=== PATIENT | female | born 1955 | race Caucasian/White ===

== ENCOUNTER → 2016-12-29 | Outpatient (CLI) | payer MEDICARE, MEDICAID ==
[~2016-12-29] MED LIST: NAPR250T34
--- NOTE | 2016-12-29 17:46 | Diagnostic Imaging Report ---
EXAMINATION: Bilateral digital screening mammogram with CAD. The current study was also evaluated with a Computer Aided Detection (CAD) system. INDICATION: Screening. No current complaints stated on the questionnaire. COMPARISON: 12/29/16. FINDINGS: The breasts are composed of heterogeneously dense parenchyma which may decrease mammographic sensitivity. No mass, architectural distortion or suspicious calcification. Allowing for technique and positional differences, no suspicious change is seen. IMPRESSION: Dense breasts with no definite change. ACR BI-RADS Category 2: Benign findings. Result letter will be mailed to the patient. Note: At least 10% of breast cancer is not imaged by mammography. Dictated by: Dictated on workstation # [id number]
== END ==
LOC: RAD 11:03
PROVIDERS: ATTEND Internal Medicine
DX: Z12.31 Encounter for screening mammogram for malignant neoplasm of breast (principal)
CPT/HCPCS: 77067

== ENCOUNTER → 2017-08-24 | Outpatient (CLI) | payer MEDICARE, MEDICAID ==
--- NOTE | 2017-08-24 11:55 | Diagnostic Imaging Report ---
PROCEDURE: CT lumbar spine without contrast. TECHNIQUE: Multiple contiguous axial images were obtained through the lumbar spine without the use of intravenous contrast. Sagittal and coronal reformations were then performed. INDICATION: Low back pain radiating into left knee. Left hip replacement. COMPARISON: None. FINDINGS: Advanced scoliotic curvature of the lower thoracic and lumbar spine, apex right centered at L1-L2, apex left centered at L4-L5. There is moderate rightward listhesis of L3 on L4. No substantial anterior or retrolisthesis. Advanced degenerative endplate changes throughout the lumbar spine. Advanced diffuse facet arthropathy. Vertebral body heights preserved. No acute fractures. Soft tissue windows demonstrate no high-grade spinal canal narrowing on this noncontrast exam. Degenerative endplate changes combined with facet arthropathy and scoliosis do result in moderate to advanced neural foraminal narrowing on the left at L1-L2 and on the right at L4-L5 and L5-S1. Medullary nephrocalcinosis of the left kidney. Mild scattered atherosclerotic calcifications. IMPRESSION: 1. No acute CT findings in the lumbar spine. 2. Advanced spondylotic and scoliotic changes in the lumbar spine. Soft tissue windows demonstrate no findings suspicious for high-grade spinal canal narrowing. This could be better evaluated with CT myelogram or MRI. 3. Scattered moderate to advanced neural foraminal narrowing described above. Dictated by: Dictated on workstation # [id number]
== END ==
LOC: RAD 11:18
PROVIDERS: ATTEND Internal Medicine Cardiovascular Disease
DX: M47.816 Spondylosis without myelopathy or radiculopathy, lumbar region (principal); M41.86 Other forms of scoliosis, lumbar region; M43.16 Spondylolisthesis, lumbar region; M46.86 Other specified inflammatory spondylopathies, lumbar region; M99.73 Connective tissue and disc stenosis of intervertebral foramina of lumbar region; E83.59 Other disorders of calcium metabolism; N29 Other disorders of kidney and ureter in diseases classified elsewhere; I70.90 Unspecified atherosclerosis; M19.90 Unspecified osteoarthritis, unspecified site; I10 Essential (primary) hypertension; Z83.3 Family history of diabetes mellitus; Z87.891 Personal history of nicotine dependence; Z96.642 Presence of left artificial hip joint
CPT/HCPCS: 72131

== ENCOUNTER → 2017-09-15 | Outpatient (CLI) | payer MEDICARE, MEDICAID ==
[~2017-09-15] MED LIST changes: +IOHEXOL 350 MG/ML 100 ML (OMNIPAQUE 350) VIAL IV ONE; +NS 250 ML (IVPB) BAG IV ONE
--- NOTE | 2017-09-15 13:38 | Diagnostic Imaging Report ---
PROCEDURE: CT chest, abdomen, and pelvis with contrast. TECHNIQUE: Multiple contiguous axial images were obtained through the chest, abdomen, and pelvis after the administration of intravenous contrast. INDICATION: Left lower quadrant pain as well as weight loss and hypercalcemia. COMPARISON: No prior studies are available for comparison. CT CHEST: No axillary lymphadenopathy is detected. No hilar or mediastinal lymphadenopathy is detected. There is no pericardial or pleural fluid identified. No pulmonary infiltrates, nodules, or masses are seen. Scoliotic curvature of the thoracic spine is seen. IMPRESSION: Essentially unremarkable CT of the chest. No pulmonary parenchymal mass or thoracic lymphadenopathy is detected. CT ABDOMEN AND PELVIS: No discrete liver mass is identified. The gallbladder is unremarkable. The pancreas and spleen are unremarkable. No adrenal mass is detected. Bilateral renal calculi are identified. The greatest stone burden is on the left where there are numerous large calculi. The largest is approximately 14 mm in size. No definite hydronephrosis is seen. There are low-density lesions within both kidneys suggestive of cysts. The largest is on the left in the upper pole measuring 3.8 cm. No definite ureteral calculi are seen. The aorta is nonaneurysmal. No central retroperitoneal or mesenteric lymphadenopathy is seen. The visualized small and large bowel loops are normal in caliber. There is moderate stool in the right colon. There is no ascites. There is a large amount of artifact in the pelvis from the patient's left hip prosthesis. Lumbar scoliosis and spondylosis is noted. IMPRESSION: 1. Bilateral nonobstructing left nephrolithiasis. There is significant stone burden involving the left kidney. No definite urinary tract obstruction is seen. 2. Bilateral renal cysts. 3. No other significant abnormality is identified. Dictated by: Dictated on workstation # [id number]
== END ==
LOC: RAD 12:10
PROVIDERS: ATTEND Internal Medicine
DX: N20.0 Calculus of kidney (principal); N28.1 Cyst of kidney, acquired; E83.52 Hypercalcemia
CPT/HCPCS: 71260; 74177

== ENCOUNTER → 2017-10-12 | Outpatient (CLI) | payer MEDICARE, MEDICAID ==
[~2017-10-12] MED LIST changes: -IOHEXOL 350 MG/ML 100 ML (OMNIPAQUE 350) VIAL IV ONE; -NS 250 ML (IVPB) BAG IV ONE
--- NOTE | 2017-10-12 14:17 | Diagnostic Imaging Report ---
PROCEDURE: MRI lumbar spine. INDICATION: Low back pain with left leg pain and weakness x12 weeks. No known injury. TECHNIQUE: Multiplanar and multisequence noncontrast magnetic resonance imaging was performed of the lumbar spine. CORRELATION STUDY: CT lumbar spine 08/24/2017. FINDINGS: Rather pronounced thoracolumbar scoliotic curvature present, apex to the right at L2 into the left at L4-L5. There is moderate rightward listhesis of L3 on L4. Lumbar vertebral body heights demonstrate slight asymmetric areas of loss of height, particularly along the left aspect of L1. No acute-appearing compression deformity. No significant geographic lesion. The conus appears unremarkable. L5-S1: Mild loss of disc space height. Asymmetric disc and osteophyte formation along with asymmetric hypertrophic facet arthropathy result in prominent left foraminal narrowing. Ligamentum hypertrophy results in spinal canal narrowing to approximately 8 mm. L4-L5: Mild loss of height. Ligamentum and facet hypertrophy is present with slight trefoil-type spinal canal configuration. Asymmetric mild right foraminal narrowing. Left foramina fairly well maintained. L3-L4: Moderate loss of disc space height. Ligamentum and facet hypertrophy disproportionate, greater on the left. Disc and osteophyte formation results in bilateral foraminal narrowing, perhaps slightly greater on the right. L2-L3: Moderate loss of disc space height. Ligamentum and facet hypertrophy. Moderate bilateral foraminal narrowing owing to disc and osteophyte formation. L1-L2: Moderate to marked loss of disc space height. Mild ligamentum and facet hypertrophy without significant spinal canal narrowing. Moderate bilateral foraminal narrowing owing to disc and osteophyte formation. T2 hyperintense renal lesions suggestive of renal cyst. Abdominal aorta appearing normal in contour. IMPRESSION: 1. Rather pronounced multilevel areas of foraminal narrowing. This is largely attributed to degenerative disc and osteophyte formation along with asymmetric hypertrophic facet arthropathy. Findings are accentuated by a moderate severity scoliotic curvature of the thoracolumbar spine. Dictated by: Dictated on workstation # [id number]
== END ==
LOC: RAD 08:27
PROVIDERS: ATTEND Internal Medicine
DX: M99.73 Connective tissue and disc stenosis of intervertebral foramina of lumbar region (principal); M51.16 Intervertebral disc disorders with radiculopathy, lumbar region; M46.86 Other specified inflammatory spondylopathies, lumbar region; M41.85 Other forms of scoliosis, thoracolumbar region
CPT/HCPCS: 72148

== ENCOUNTER → 2018-04-17 | Outpatient (CLI) | payer MEDICARE, MEDICAID ==
[2018-04-17 10:59] LABS: BILIRUBIN,URINE NEGATIVE (NEGATIVE); CLARITY,URINE SLIGHTLY CLOUDY; COLOR,URINE YELLOW; GLUCOSE, URINE (UA) NEGATIVE (NEGATIVE); KETONES,URINE NEGATIVE (NEGATIVE); LEUKOCYTE ESTERASE ,URINE 3+ (NEGATIVE); NITRITE,URINE POSITIVE (NEGATIVE); PH,URINE 6.5 (5-9); PROTEIN,URINE 1+ (NEGATIVE); UROBILINOGEN,URINE NORMAL (NORMAL)
[2018-04-17 11:18] LABS: BACTERIA,URINE MODERATE /HPF; WBC,URINE >100 /HPF
== END ==
LOC: LAB 10:42
PROVIDERS: ATTEND Internal Medicine
DX: N39.0 Urinary tract infection, site not specified (principal); R31.9 Hematuria, unspecified
CPT/HCPCS: 81000; 87077; 87088

== ENCOUNTER → 2018-05-31 | Outpatient (CLI) | payer MEDICARE, MEDICAID ==
[~2018-05-31] MED LIST changes: +IOHEXOL 350 MG/ML 100 ML (OMNIPAQUE 350) VIAL IV ONE; +NS 100 ML (IVPB) BAG IV ONE; +RECEIVED CONTRAST (Hold Metformin) IV SCH
[2018-05-31 08:40] LABS: CREATININE SERUM 1.14 MG/DL (0.60-1.30)
--- NOTE | 2018-05-31 10:01 | Diagnostic Imaging Report ---
PROCEDURE: CT abdomen and pelvis with contrast. TECHNIQUE: Multiple contiguous axial images were obtained through the abdomen and pelvis after administration of intravenous contrast. INDICATION: Hernia on left side. FINDINGS: The previous CT of the chest, abdomen and pelvis exam of 09/15/2017 noted multiple nonobstructive calculi involving both kidneys, particularly the left kidney. There are also several cysts associated with the left kidney including a 3.8 cm cyst in the superior pole. Those findings are again evident on this study. There is still no evidence for obstruction of either collecting system by a calculus. However one of the cysts within the left kidney has increased in size since the prior study. On the prior exam the cyst measured approximately 2.7 cm in maximum dimension. On this exam the cyst is now estimated to be 4.3 cm. The cyst in the superior pole of the left kidney seen previously is also increased in size and now measures 4.2 cm. The images through the pelvis fail to show any sign of a discrete solid or cystic mass. The pelvic contents however are partially obscured by streak artifact related to the total hip prosthesis on the left and the orthopedic hardware overlying the left ilium. There does appear to be a fair amount of fecal material within the rectosigmoid portion of the colon. The uterus and urinary bladder are grossly unremarkable. The appendix was not well-visualized but there are no indirect signs of acute appendicitis. The liver, spleen, pancreas, adrenals, aorta and inferior vena cava are unremarkable for an acute abnormality. The gallbladder is not well-distended and consequently difficult to assess. The stomach is partially filled with fluid and also difficult to assess. Lung bases are clear. The bone windows fail to show any sign of a fracture or of a destructive lesion. There is dextroscoliosis of the thoracolumbar junction with fairly severe degenerative disc and bone disease on the left at L1-2. IMPRESSION: 1. There is no acute abnormality of the abdomen or pelvis. 2. There is a considerable amount of fecal material within the rectosigmoid portion of the colon but there is no pelvic mass or free fluid collection identified. The pelvic contents however are difficult to visualize due to streak artifact related to the total hip prosthesis on the left. 3. The nonobstructive calculi involving both kidneys seen previously are again evident and do not appear to have changed significantly. There is no sign of obstruction of either collecting system. However there has been a definite increase in the size of two of the cysts associate with the left kidney. Dictated by: Dictated on workstation # [id number]
== END ==
LOC: RAD 08:04
PROVIDERS: ATTEND Surgery
DX: N20.0 Calculus of kidney (principal); N28.1 Cyst of kidney, acquired; Z96.642 Presence of left artificial hip joint
CPT/HCPCS: 36415; 74177; 82565; 84520

== ENCOUNTER → 2018-09-19 | Outpatient (CLI) | payer MEDICARE, MEDICAID ==
[~2018-09-19] MED LIST changes: -IOHEXOL 350 MG/ML 100 ML (OMNIPAQUE 350) VIAL IV ONE; -NS 100 ML (IVPB) BAG IV ONE; -RECEIVED CONTRAST (Hold Metformin) IV SCH
--- NOTE | 2018-09-19 15:14 | Diagnostic Imaging Report ---
INDICATION: Left renal and right ureteral calculi. Right lower quadrant abdominal pain. COMPARISON: 05/31/2018 FINDINGS: Single supine radiographic view of the abdomen was obtained and demonstrates interval migration of 6 mm calculus into the mid right ureter. Multiple left renal calculi are again identified. Small bowel loops are nondistended. There is no large collection of free intraperitoneal air. Postsurgical changes to the left hip are noted. Bony structures show dextroscoliotic deformity with multilevel degenerative changes of the lumbar spine. IMPRESSION: 1. Interval migration of 6 mm calculus to the right mid ureter. 2. Multiple right-sided renal calculi. Dictated by: Dictated on workstation # [id number]
== END ==
LOC: RAD 13:50
PROVIDERS: ATTEND Urology
DX: N20.2 Calculus of kidney with calculus of ureter (principal)
CPT/HCPCS: 74018

== ENCOUNTER 2018-09-25 05:59 | Day surgery (SDC) | payer MEDICARE, MEDICAID ==
[2018-09-25] VITALS (7 sets, daily range): BP systolic 162–190; BP diastolic 88–105
[~2018-09-25] VITALS: Ht 162.6 cm; Wt 48.5 kg
[2018-09-25] MEDS ORDERED: LACTATED RINGERS 1,000 ML IV PRN (06:40)
[2018-09-25] MEDS ORDERED: cefTRIAXone FOR IV USE 1,000 MG in WATER (STERILE) FOR INJECTION 10 ML IV ONE (06:45)
[2018-09-25] MEDS ORDERED: cefTRIAXone 1,000 MG IV (ROCEPHIN) VIAL ONE (06:52)
[2018-09-25] MEDS ORDERED: LIDOCAINE PF 2% 5 ML (XYLOCAINE) VIAL ONE (06:55)
[2018-09-25] MEDS ORDERED: ONDANSETRON 4 MG/2 ML (SDV) Z0FRAN ONE (06:55)
[2018-09-25] MEDS ORDERED: DEXAMETHASONE 10 MG/ML (DECADRON) 1 ML VIAL ONE ×2 (06:55→08:08)
[2018-09-25] MEDS ORDERED: proPOfol 200 MG/20 ML (DIPRIVAN) VIAL IV ONE (06:55)
[2018-09-25] MEDS ORDERED: MIDAZOLAM 2 MG/2 ML (VERSED) VIAL ONE (06:58)
[2018-09-25] MEDS ORDERED: SEVOFLURANE (ULTANE) 15 ML INHAL SOLN ONE ×2 (06:58→08:15)
[2018-09-25] MEDS ORDERED: fentaNYL INJECTION 100 MCG/2 ML AMP ONE (06:58)
--- NOTE | 2018-09-25 07:01 | Progress Note-Pre Operative ---
Pre-Operative Progress Note H&P Reviewed The H&P was reviewed, patient examined and no changes noted. Date Seen by Provider: Sep 25, 2018 Time Seen by Provider: 07:01 Date H&P Reviewed: Sep 25, 2018 Time H&P Reviewed: 07:01 Pre-Operative Diagnosis: RT PROXIMAL URETERAL STONE ASHLEY POLO MD Sep 25, 2018 07:01
--- NOTE | 2018-09-25 07:08 | Progress Note-Post Operative ---
Post-Operative Progess Note Surgeon (s)/Calibration Technician (s) Surgeon ASHLEY POLO MD Calibration Technician: NONE Pre-Operative Diagnosis RT PROXIMAL URETERAL STONE Post-Operative Diagnosis SAME Procedure & Operative Findings Date of Procedure 09/25/18 Procedure Performed/Findings CYSTOSCOPY, ATTEMPTED RT URETERAL STONE MANIPULATION, RT URETEROSCOPY, ATTEMPTED INSERTION OF STENT Anesthesia Type GENERAL Estimated Blood Loss Estimated blood loss (mL): NONE Specimens/Packing Specimens Removed NONE Packing: NONE ASHLEY POLO MD Sep 25, 2018 07:08
--- NOTE | 2018-09-25 08:01 | Diagnostic Imaging Report ---
INDICATION: Right ureteral calculus. Calculus on the right measuring 8.9 mm projects over the upper right sacral ala not substantially changed from prior. Mid ureteral stone suspected. Innumerable calcifications project along the left flank. Pelvic phleboliths showed no change. IMPRESSION: Large irregular calcification at the level of the top of the right sacral ala unchanged. Innumerable left-sided stones unchanged. Pelvic calcifications believed phleboliths. Dictated by: Dictated on workstation # [id number]
--- NOTE | 2018-09-25 08:06 | Discharge Inst-Urology ---
Discharge Inst-Urology Discharge Medications New, Converted, or Re-newed RX: RX on Chart Patient Instructions/Follow Up Plan Please make appointment to been seen in office tomorrow afternoon. Increase oral fluids for 48 hours and then as needed. Diet and Activity as tolerated. If questions or concerns contact your physician Or seek help at emergency department. ASHLEY POLO MD Sep 25, 2018 08:06
[2018-09-25] MEDS ORDERED: PHEN-640 PO ×2 (08:27)
[2018-09-25] MEDS ORDERED: HYDR-3870 PO ×2 (08:27)
[2018-09-25] MEDS ORDERED: NITR-65 PO ×2 (08:27)
--- NOTE | 2018-09-25 08:39 | Anesthesia-General Post-Op ---
General Patient Condition Mental Status/LOC: Same as Preop Cardiovascular: Satisfactory Nausea/Vomiting: Absent Respiratory: Satisfactory Pain: Controlled Complications: Absent Post Op Complications Complications None Follow Up Care/Instructions Patient Instructions None needed. Anesthesia/Patient Condition Patient Condition Patient is doing well, no complaints, stable vital signs, no apparent adverse anesthesia problems. No complications reported per nursing. JU WOOTEN CRNA Sep 25, 2018 08:39
[2018-09-25] MEDS ORDERED: HYDROcodone/APAP 5 MG/325 MG (LORTAB) TAB ONE (08:58)
[2018-09-25] MEDS ORDERED: PHENAZOPYRIDINE 100 MG (PYRIDIUM) TABLET ONE (08:58)
[2018-09-25] MEDS ORDERED: PHENAZOPYRIDINE 100 MG (PYRIDIUM) TABLET PO ONE (09:15)
[2018-09-25] MEDS ORDERED: HYDROcodone/APAP 5 MG/325 MG (LORTAB) TAB PO ONE (09:15)
--- NOTE | 2018-09-25 12:47 | OPERATIVE REPORT ---
DATE OF SERVICE: 09/25/2018 PREOPERATIVE DIAGNOSIS: Right proximal ureteral stone. POSTOPERATIVE DIAGNOSIS: Right proximal ureteral stone. OPERATION PERFORMED: Cystoscopy, right ureteroscopy, attempted right ureteral stone manipulation, attempted insertion of stent. SURGEON: Christofer Polo MD ANESTHESIA: General. COMPLICATIONS: None. PROCEDURE IN DETAIL: Under satisfactory general anesthesia, the patient in lithotomy position, genitalia were prepped and draped in the usual sterile fashion. Cystoscope was introduced in the bladder. It was normal except for a very sluggish efflux on the right side. Using a foroblique lens, I dilated the right ureteral orifice intramural portion to accommodate a 6.9 Hungarian semirigid ureteroscope; however, I could not get all the way up to the stone that was at the level of L5 because of tightness of the ureter and some spasm despite injecting water to dilate it, I was not able to do that, so I removed the ureteroscope, reinserted the cystoscope and passed the catheter all the way to the stone. Tried to manipulate it, push it back into the kidney, flush it back into the kidney. Nothing worked, so I removed the catheter and attempted to pass a 6-Hungarian 26 cm double-J stent again unable to bypass the stone. I tried to pass a gliding wire, again the gliding wire could not bypass the stone. It was apparently filling the whole ureter. I discontinued further attempt and removed the cystoscope after emptying the bladder. The patient tolerated the procedure well and was sent to recovery room in stable condition. PLAN: I discussed with her brother and then later on with her and tomorrow afternoon when she has become more off anesthesia and lucid. Her option would be to either await the ESWL machine next week here when it comes or refer her to a place like or [facility], where they can do flexible ureteroscopy and lithotripsy. I explained the pros and cons and expectation risks and complication to them. Job ID: [id number] DocumentID: [id number] Dictated Date: 09/25/2018 08:11:29 Calculator Operator Date: 09/25/2018 12:46:52 Dictated By: CHRISTOFER POLO MD
== END 2018-09-25 09:45 | disposition home or self-care (01) ==
LOC: SDC 05:59
PROVIDERS: ATTEND Urology
DX: N20.1 Calculus of ureter (principal)
CPT/HCPCS: 74018; 87081

== ENCOUNTER 2018-09-27 05:36 | Outpatient (CLI) | payer MEDICARE, MEDICAID ==
[~2018-09-27] VITALS: Ht 162.6 cm; Wt 48.5 kg
[~2018-09-27 05:36] MED LIST changes: +HYDR-3870 PO; +NITR-65 PO; +PHEN-640 PO
== END 2018-09-27 13:11 | disposition home or self-care (01) ==
LOC: PREOP 05:36
PROVIDERS: ATTEND Urology
DX: Z01.818 Encounter for other preprocedural examination (principal)

== ENCOUNTER 2018-10-02 06:58 | Day surgery (SDC) | payer MEDICARE, MEDICAID ==
[~2018-10-02] VITALS: Ht 162.6 cm; Wt 49.4 kg
[2018-10-02] VITALS (9 sets, daily range): BP systolic 156–183; BP diastolic 89–97
[2018-10-02] MEDS ORDERED: cefTRIAXone 1,000 MG/SWFI 10 ML IV PUSH IV ONE ×2 (07:15)
[2018-10-02] MEDS ORDERED: LACTATED RINGERS 1,000 ML IV PRN (07:20)
[2018-10-02] MEDS ORDERED: ONDANSETRON 4 MG/2 ML (SDV) Z0FRAN ONE (07:24)
[2018-10-02] MEDS ORDERED: SEVOFLURANE (ULTANE) 15 ML INHAL SOLN ONE ×6 (07:24→09:13)
[2018-10-02] MEDS ORDERED: proPOfol 200 MG/20 ML (DIPRIVAN) VIAL IV ONE (07:24)
[2018-10-02] MEDS ORDERED: MIDAZOLAM 2 MG/2 ML (VERSED) VIAL ONE (07:24)
[2018-10-02] MEDS ORDERED: fentaNYL INJECTION 100 MCG/2 ML AMP ONE (07:24)
[2018-10-02] MEDS ORDERED: DEXAMETHASONE 10 MG/ML (DECADRON) 1 ML VIAL ONE (07:24)
[2018-10-02] MEDS ORDERED: LIDOCAINE PF 2% 5 ML (XYLOCAINE) VIAL ONE (07:24)
[2018-10-02] MEDS ORDERED: cefTRIAXone FOR IV USE 1,000 MG in WATER (STERILE) FOR INJECTION 10 ML IV ONE (07:30)
--- NOTE | 2018-10-02 08:04 | Diagnostic Imaging Report ---
PATIENT HISTORY: ESWL. TECHNIQUE: Single frontal view of the abdomen COMPARISON: 09/25/2018 FINDINGS: The previously seen right ureteral calculus appears unchanged at the superior aspect of the right sacrum. There are innumerable calculi in the left kidney which appear unchanged. Phleboliths are seen in the pelvis. There is internal fixation of the left pelvis with total left hip arthroplasty. Advanced degenerative changes are again seen in the lumbar spine. IMPRESSION: 1. Unchanged right ureteral calculus. Unchanged innumerable left renal calculi. Dictated by: Dictated on workstation # [id number]
--- NOTE | 2018-10-02 08:04 | Progress Note-Pre Operative ---
Pre-Operative Progress Note H&P Reviewed The H&P was reviewed, patient examined and no changes noted. Date Seen by Provider: Oct 02, 2018 Time Seen by Provider: 08:03 Date H&P Reviewed: Oct 02, 2018 Time H&P Reviewed: 08:03 Pre-Operative Diagnosis: RT PROXIMAL URETERAL STONE ASHLEY POLO MD Oct 02, 2018 08:04
[2018-10-02] MEDS ORDERED: FUROSEMIDE 40 MG/4 ML INJ (LASIX) ONE (08:28)
--- NOTE | 2018-10-02 08:54 | Discharge Inst-Urology ---
Discharge Inst-Urology Discharge Medications New, Converted, or Re-newed RX: RX on Chart Patient Instructions/Follow Up Plan Please make appointment to been seen in office Sunday 10/15, JORGE prior to it. Post ESWL instructions KUB on way home Increase oral fluids for 48 hours and then as needed. Diet and Activity as tolerated. If questions or concerns contact your physician Or seek help at emergency department. ASHLEY POLO MD Oct 02, 2018 08:54
--- NOTE | 2018-10-02 08:55 | Progress Note-Post Operative ---
Post-Operative Progess Note Surgeon (s)/Cleaning Porter (s) Surgeon ASHLEY POLO MD Cleaning Porter: NONE Pre-Operative Diagnosis RT PROXIMAL URETERAL STONE Post-Operative Diagnosis SAME Procedure & Operative Findings Date of Procedure 10/02/18 Procedure Performed/Findings RT ESWL Anesthesia Type GENERAL Estimated Blood Loss Estimated blood loss (mL): NONE Specimens/Packing Specimens Removed NONE Packing: NONE ASHLEY POLO MD Oct 02, 2018 08:55
[2018-10-02] MEDS ORDERED: MEPERIDINE (DEMEROL) INJ 50 MG/ML IVP ONE (09:30)
[2018-10-02] MEDS ORDERED: morphine INJ 10 MG/ML 1ML (SYR OR VIAL) IVP ONE (09:30)
[2018-10-02] MEDS ORDERED: ONDANSETRON 4 MG/2 ML (SDV) Z0FRAN IVP PRN (09:30)
[2018-10-02] MEDS ORDERED: NITR-65 PO (10:04)
[2018-10-02] MEDS ORDERED: TAMS0.4C98 PO (10:04)
[2018-10-02] MEDS ORDERED: HYDR-3870 PO (10:04)
--- OUTSIDE RECORDS SUMMARY | 2018-10-02 10:12 | XMS REPORT | Continuity of Care Document ---
Author Organization Unknown Address Unknown Allergies Active Description Code Type Severity Reaction Onset Reported/Identified Relationship to Patient Clinical Status Yes ASPIRIN MODERATE MODERATE Yes ASPIRIN MODERATE OTHER Yes LEVAQUIN MODERATE MODERATE Yes LEVAQUIN MODERATE OTHER Yes aspirin [id number] Drug Allergy Mild N/A 09/28/2011 Yes levofloxacin [id number] Drug Allergy Mild N/A 09/28/2011 Yes aspirin [id number] Drug Allergy Mild "MADE EARDRUMS 09/24/2018 Yes levofloxacin [id number] Drug Allergy Mild "MADE HER FEEL 09/24/2018 Medications Medication Packaging Start Date Stop Date Route Dosage Sig SMZ/TMP DS TAB (SEPTRA DS) (Bactrim DS) TAB 03/28/2018 03/28/2018 ONCE&1815 NORMAL SALINE 1000CC IV BAG INJ 0.9 % (NS 1000CC IV BAG) ml 09/17/2018 09/17/2018 ONCE&0410 KETOROLAC VIAL INJ 15 MG/CC (TORADOL VIAL) MG 09/17/2018 09/17/2018 ONCE&0553 FENTANYL INJ 100 MCG/2CC VIAL MCG 09/17/2018 09/17/2018 ONCE&0626 FENTANYL INJ 100 MCG/2CC VIAL MCG 09/17/2018 09/17/2018 ONCE&0651 HYDROCODONE/APAP 7.5/325 TAB (DOROTHY-TAB 7.5/325) TAB 09/17/2018 09/17/2018 PRN ONCE Problems Date Dx Coded Attending Type Code Diagnosis Diagnosed By 02/18/2010 Ot 592.0 05/12/2014 Ot V76.12 05/12/2014 Ot 378.54 05/12/2014 Ot V76.12 05/12/2014 Ot 733.00 05/12/2014 Ot V58.69 05/12/2014 PRABHU CHACON MD Ot V76.12 06/30/2014 PRABHU CHACON MD Ot 788.1 08/10/2014 PRABHU CHACON MD Ot 788.1 DYSURIA 12/10/2014 PRABHU CHACON MD Ot V76.12 12/02/2015 PRABHU CHACON MD Ot Z12.31 ENCNTR SCREEN MAMMOGRAM FOR MALIGNANT NE 12/24/2015 PRABHU CHACON MD Ot Z12.31 ENCNTR SCREEN MAMMOGRAM FOR MALIGNANT NE 08/01/2016 Ot 592.0 11/01/2016 Ot 592.0 12/26/2016 PRABHU CHACON MD Ot Z12.31 ENCNTR SCREEN MAMMOGRAM FOR MALIGNANT NE 12/26/2016 Ot 733.00 OSTEOPOROSIS NOS 12/26/2016 Ot V58.69 OTH MED,LT,CURRENT USE 12/26/2016 PRABHU CHACON MD Ot V76.12 OTH SCREEN MAMMO-MALIGN NEOPLASM OF JAMI 12/26/2016 PRABHU CHACON MD Ot 788.1 DYSURIA 12/26/2016 PRABHU CHACON MD Ot V76.12 OTH SCREEN MAMMO-MALIGN NEOPLASM OF JAMI 12/26/2016 PRABHU CHACON MD Ot Z12.31 ENCNTR SCREEN MAMMOGRAM FOR MALIGNANT NE 12/26/2016 PRABHU CHACON MD Ot Z12.31 ENCNTR SCREEN MAMMOGRAM FOR MALIGNANT NE 12/29/2016 Ot 733.00 OSTEOPOROSIS NOS 12/29/2016 Ot V58.69 OTH MED,LT,CURRENT USE 12/29/2016 PRABHU CHACON MD Ot V76.12 OTH SCREEN MAMMO-MALIGN NEOPLASM OF JAMI 12/29/2016 PRABHU CHACON MD Ot 788.1 DYSURIA 12/29/2016 PRABHU CHACON MD Ot V76.12 OTH SCREEN MAMMO-MALIGN NEOPLASM OF JAMI 12/29/2016 PRABHU CHACON MD Ot Z12.31 ENCNTR SCREEN MAMMOGRAM FOR MALIGNANT NE 12/29/2016 PRABHU CHACON MD Ot Z12.31 ENCNTR SCREEN MAMMOGRAM FOR MALIGNANT NE 12/30/2016 PRABHU CHACON MD Ot Z12.31 ENCNTR SCREEN MAMMOGRAM FOR MALIGNANT NE 01/01/2017 Ot 592.0 01/18/2017 PRABHU CHACON MD Ot Z12.31 ENCNTR SCREEN MAMMOGRAM FOR MALIGNANT NE 01/27/2017 PRABHU CHACON MD Ot Z12.31 ENCNTR SCREEN MAMMOGRAM FOR MALIGNANT NE 09/06/2017 DAMARIS TSAI MD Ot E83.59 OTHER DISORDERS OF CALCIUM METABOLISM 09/06/2017 DAMARIS TSAI MD Ot I10 ESSENTIAL (PRIMARY) HYPERTENSION 09/06/2017 DAMARIS TSAI MD Ot I70.90 UNSPECIFIED ATHEROSCLEROSIS 09/06/2017 DAMARIS TSAI MD Ot M19.90 UNSPECIFIED OSTEOARTHRITIS, UNSPECIFIED 09/06/2017 DAMARIS TSAI MD Ot M41.86 OTHER FORMS OF SCOLIOSIS, LUMBAR REGION 09/06/2017 DAMARIS TSAI MD Ot M43.16 SPONDYLOLISTHESIS, LUMBAR REGION 09/06/2017 DAMARIS TSAI MD Ot M46.86 OTHER SPECIFIED INFLAMMATORY SPONDYLOPAT 09/06/2017 DAMARIS TSAI MD Ot M47.816 SPONDYLOSIS W/O MYELOPATHY OR RADICULOPA 09/06/2017 DAMARIS TSAI MD Ot M99.73 CONN TISS AND DISC STENOS OF INTVRT FORA 09/06/2017 DAMARIS TSAI MD Ot N29 OTH DISORDERS OF KIDNEY AND URETER IN DI 09/06/2017 DAMARIS TSAI MD Ot Z83.3 FAMILY HISTORY OF DIABETES MELLITUS 09/06/2017 DAMARIS TSAI MD Ot Z87.891 PERSONAL HISTORY OF NICOTINE DEPENDENCE 09/06/2017 DAMARIS TSAI MD Ot Z96.642 PRESENCE OF LEFT ARTIFICIAL HIP JOINT 09/08/2017 DAMARIS TSAI MD Ot E83.59 OTHER DISORDERS OF CALCIUM METABOLISM 09/08/2017 DAMARIS TSAI MD Ot I10 ESSENTIAL (PRIMARY) HYPERTENSION 09/08/2017 DAMARIS TSAI MD Ot I70.90 UNSPECIFIED ATHEROSCLEROSIS 09/08/2017 DAMARIS TSAI MD Ot M19.90 UNSPECIFIED OSTEOARTHRITIS, UNSPECIFIED 09/08/2017 DAMARIS TSAI MD Ot M41.86 OTHER FORMS OF SCOLIOSIS, LUMBAR REGION 09/08/2017 DAMARIS TSAI MD Ot M43.16 SPONDYLOLISTHESIS, LUMBAR REGION 09/08/2017 DAMARIS TSAI MD Ot M46.86 OTHER SPECIFIED INFLAMMATORY SPONDYLOPAT 09/08/2017 DAMARIS TSAI MD Ot M47.816 SPONDYLOSIS W/O MYELOPATHY OR RADICULOPA 09/08/2017 DAMARIS TSAI MD Ot M99.73 CONN TISS AND DISC STENOS OF INTVRT FORA 09/08/2017 DAMARIS TSAI MD Ot N29 OTH DISORDERS OF KIDNEY AND URETER IN DI 09/08/2017 DAMARIS TSAI MD Ot Z83.3 FAMILY HISTORY OF DIABETES MELLITUS 09/08/2017 DAMARIS TSAI MD Ot Z87.891 PERSONAL HISTORY OF NICOTINE DEPENDENCE 09/08/2017 DAMARIS TSAI MD Ot Z96.642 PRESENCE OF LEFT ARTIFICIAL HIP JOINT 09/13/2017 DAMARIS TSAI MD Ot E83.59 OTHER DISORDERS OF CALCIUM METABOLISM 09/13/2017 DAMARIS TSAI MD Ot I10 ESSENTIAL (PRIMARY) HYPERTENSION 09/13/2017 DAMARIS TSAI MD Ot I70.90 UNSPECIFIED ATHEROSCLEROSIS 09/13/2017 DAMARIS TSAI MD Ot M19.90 UNSPECIFIED OSTEOARTHRITIS, UNSPECIFIED 09/13/2017 DAMARIS TSAI MD Ot M41.86 OTHER FORMS OF SCOLIOSIS, LUMBAR REGION 09/13/2017 DAMARIS TSAI MD Ot M43.16 SPONDYLOLISTHESIS, LUMBAR REGION 09/13/2017 DAMARIS TSAI MD Ot M46.86 OTHER SPECIFIED INFLAMMATORY SPONDYLOPAT 09/13/2017 DAMARIS TSAI MD Ot M47.816 SPONDYLOSIS W/O MYELOPATHY OR RADICULOPA 09/13/2017 DAMARIS TSAI MD Ot M99.73 CONN TISS AND DISC STENOS OF INTVRT FORA 09/13/2017 DAMARIS TSAI MD Ot N29 OTH DISORDERS OF KIDNEY AND URETER IN DI 09/13/2017 DAMARIS TSAI MD Ot Z83.3 FAMILY HISTORY OF DIABETES MELLITUS 09/13/2017 DAMARIS TSAI MD Ot Z87.891 PERSONAL HISTORY OF NICOTINE DEPENDENCE 09/13/2017 DAMARIS TSAI MD Ot Z96.642 PRESENCE OF LEFT ARTIFICIAL HIP JOINT 09/13/2017 DAMARIS TSAI MD Ot E83.59 OTHER DISORDERS OF CALCIUM METABOLISM 09/13/2017 DAMARIS TSAI MD Ot I10 ESSENTIAL (PRIMARY) HYPERTENSION 09/13/2017 DAMARIS TSAI MD Ot I70.90 UNSPECIFIED ATHEROSCLEROSIS 09/13/2017 DAMARIS TSAI MD Ot M19.90 UNSPECIFIED OSTEOARTHRITIS, UNSPECIFIED 09/13/2017 DAMARIS TSAI MD Ot M41.86 OTHER FORMS OF SCOLIOSIS, LUMBAR REGION 09/13/2017 DAMARIS TSAI MD Ot M43.16 SPONDYLOLISTHESIS, LUMBAR REGION 09/13/2017 DAMARIS TSAI MD Ot M46.86 OTHER SPECIFIED INFLAMMATORY SPONDYLOPAT 09/13/2017 DAMARIS TSAI MD Ot M47.816 SPONDYLOSIS W/O MYELOPATHY OR RADICULOPA 09/13/2017 DAMARIS TSAI MD Ot M99.73 CONN TISS AND DISC STENOS OF INTVRT FORA 09/13/2017 DAMARIS TSAI MD Ot N29 OTH DISORDERS OF KIDNEY AND URETER IN DI 09/13/2017 DAMARIS TSAI MD Ot Z83.3 FAMILY HISTORY OF DIABETES MELLITUS 09/13/2017 DAMARIS TSAI MD Ot Z87.891 PERSONAL HISTORY OF NICOTINE DEPENDENCE 09/13/2017 DAMARIS TSAI MD Ot Z96.642 PRESENCE OF LEFT ARTIFICIAL HIP JOINT 09/18/2017 PRABHU CHACON MD Ot E83.52 HYPERCALCEMIA 09/18/2017 PRABHU CHACON MD Ot N20.0 CALCULUS OF KIDNEY 09/18/2017 PRABHU CHACON MD Ot N28.1 CYST OF KIDNEY, ACQUIRED 09/26/2017 PRABHU CHACON MD Ot E83.52 HYPERCALCEMIA 09/26/2017 PRABHU CHACON MD Ot M25.862 OTHER SPECIFIED JOINT DISORDERS, LEFT KN 09/26/2017 PRABHU CHACON MD Ot Z96.642 PRESENCE OF LEFT ARTIFICIAL HIP JOINT 10/03/2017 DAMARIS TSAI MD Ot E83.59 OTHER DISORDERS OF CALCIUM METABOLISM 10/03/2017 DAMARIS TSAI MD Ot I10 ESSENTIAL (PRIMARY) HYPERTENSION 10/03/2017 DAMARIS TSAI MD Ot I70.90 UNSPECIFIED ATHEROSCLEROSIS 10/03/2017 DAMARIS TSAI MD Ot M19.90 UNSPECIFIED OSTEOARTHRITIS, UNSPECIFIED 10/03/2017 DAMARIS TSAI MD Ot M41.86 OTHER FORMS OF SCOLIOSIS, LUMBAR REGION 10/03/2017 DAMARIS TSAI MD Ot M43.16 SPONDYLOLISTHESIS, LUMBAR REGION 10/03/2017 DAMARIS TSAI MD Ot M46.86 OTHER SPECIFIED INFLAMMATORY SPONDYLOPAT 10/03/2017 DAMARIS TSAI MD Ot M47.816 SPONDYLOSIS W/O MYELOPATHY OR RADICULOPA 10/03/2017 DAMARIS TSAI MD Ot M99.73 CONN TISS AND DISC STENOS OF INTVRT FORA 10/03/2017 DAMARIS TSAI MD Ot N29 OTH DISORDERS OF KIDNEY AND URETER IN DI 10/03/2017 DAMARIS TSAI MD Ot Z83.3 FAMILY HISTORY OF DIABETES MELLITUS 10/03/2017 DAMARIS TSAI MD Ot Z87.891 PERSONAL HISTORY OF NICOTINE DEPENDENCE 10/03/2017 DAMARIS TSAI MD Ot Z96.642 PRESENCE OF LEFT ARTIFICIAL HIP JOINT 10/06/2017 DAMARIS TSAI MD Ot E83.59 OTHER DISORDERS OF CALCIUM METABOLISM 10/06/2017 DAMARIS TSAI MD Ot I10 ESSENTIAL (PRIMARY) HYPERTENSION 10/06/2017 DAMARIS TSAI MD Ot I70.90 UNSPECIFIED ATHEROSCLEROSIS 10/06/2017 DAMARIS TSAI MD Ot M19.90 UNSPECIFIED OSTEOARTHRITIS, UNSPECIFIED 10/06/2017 DAMARIS TSAI MD Ot M41.86 OTHER FORMS OF SCOLIOSIS, LUMBAR REGION 10/06/2017 DAMARIS TSAI MD Ot M43.16 SPONDYLOLISTHESIS, LUMBAR REGION 10/06/2017 DAMARIS TSAI MD Ot M46.86 OTHER SPECIFIED INFLAMMATORY SPONDYLOPAT 10/06/2017 DAMARIS TSAI MD Ot M47.816 SPONDYLOSIS W/O MYELOPATHY OR RADICULOPA 10/06/2017 DAMARIS TSAI MD Ot M99.73 CONN TISS AND DISC STENOS OF INTVRT FORA 10/06/2017 DAMARIS TSAI MD Ot N29 OTH DISORDERS OF KIDNEY AND URETER IN DI 10/06/2017 DAMARIS TSAI MD Ot Z83.3 FAMILY HISTORY OF DIABETES MELLITUS 10/06/2017 DAMARIS TSAI MD Ot Z87.891 PERSONAL HISTORY OF NICOTINE DEPENDENCE 10/06/2017 DAMARIS TSAI MD Ot Z96.642 PRESENCE OF LEFT ARTIFICIAL HIP JOINT 10/09/2017 OSWALDO BIGGS, PRABHU Briones Ot E83.52 HYPERCALCEMIA 10/09/2017 OSWALDO BIGGS, PRABHU Briones Ot N20.0 CALCULUS OF KIDNEY 10/09/2017 OSWALDO BIGGS, PRABHU Briones Ot N28.1 CYST OF KIDNEY, ACQUIRED 10/13/2017 OSWALDO BIGGS, PRABHU Briones Ot E83.52 HYPERCALCEMIA 10/13/2017 PRABHU CHACON MD Ot N20.0 CALCULUS OF KIDNEY 10/13/2017 PRABHU CHACON MD Ot N28.1 CYST OF KIDNEY, ACQUIRED 10/13/2017 OSWALDO BIGGS, PRABHU Briones Ot E83.52 HYPERCALCEMIA 10/13/2017 PRABHU CHACON MD Ot M25.862 OTHER SPECIFIED JOINT DISORDERS, LEFT KN 10/13/2017 PRABHU CHACON MD Ot Z96.642 PRESENCE OF LEFT ARTIFICIAL HIP JOINT 10/18/2017 PRABHU CHACON MD Ot M41.85 OTHER FORMS OF SCOLIOSIS, THORACOLUMBAR 10/18/2017 PRABHU CHACON MD Ot M46.86 OTHER SPECIFIED INFLAMMATORY SPONDYLOPAT 10/18/2017 OSWALDO BIGGS, PRABHU Briones Ot M51.16 INTERVERTEBRAL DISC DISORDERS W RADICULO 10/18/2017 PRABHU CHACON MD Ot M99.73 CONN TISS AND DISC STENOS OF INTVRT FORA 03/19/2018 W 724.4 THORACIC OR LUMBOSACRAL NEURITIS OR RADICULITIS, UNSPECIFIED 03/19/2018 W M54.16 RADICULOPATHY, LUMBAR REGION 03/19/2018 W 724.4 THORACIC OR LUMBOSACRAL NEURITIS OR RADICULITIS, UNSPECIFIED 03/19/2018 W 728.87 MUSCLE WEAKNESS (GENERALIZED) 03/19/2018 W M54.16 RADICULOPATHY, LUMBAR REGION 03/19/2018 W M62.81 MUSCLE WEAKNESS (GENERALIZED) 03/28/2018 Danielle Johnson W 041.3 KLEBSIELLA PNEUMONIAE INFECTION IN CONDITIONS CLASSIFIED ELSEWHERE AND OF UNSPECIFIED SITE 03/28/2018 Danielle Johnson W 599.0 URINARY TRACT INFECTION, SITE NOT SPECIFIED 03/28/2018 Danielle Johnson W B96.1 KLEBSIELLA PNEUMONIAE THE CAUSE OF DISEASES CLASSD ELSWHR 03/28/2018 Danielle Johnson W N39.0 URINARY TRACT INFECTION, SITE NOT SPECIFIED 03/30/2018 W 724.4 THORACIC OR LUMBOSACRAL NEURITIS OR RADICULITIS, UNSPECIFIED 03/30/2018 W 728.87 MUSCLE WEAKNESS (GENERALIZED) 03/30/2018 W M54.16 RADICULOPATHY, LUMBAR REGION 03/30/2018 W M62.81 MUSCLE WEAKNESS (GENERALIZED) 04/17/2018 PRABHU CHACON MD Ot V76.12 OTH SCREEN MAMMO-MALIGN NEOPLASM OF JAMI 04/17/2018 PRABHU CHACON MD Ot 788.1 DYSURIA 04/17/2018 PRABHU CHACON MD Ot V76.12 OTH SCREEN MAMMO-MALIGN NEOPLASM OF JAMI 04/17/2018 PRABHU CHACON MD Ot Z12.31 ENCNTR SCREEN MAMMOGRAM FOR MALIGNANT NE 04/17/2018 PRABHU CHACON MD, Ot Z12.31 ENCNTR SCREEN MAMMOGRAM FOR MALIGNANT NE 04/17/2018 DAMARIS TSAI MD Ot E83.59 OTHER DISORDERS OF CALCIUM METABOLISM 04/17/2018 DAMARIS TSAI MD Ot I10 ESSENTIAL (PRIMARY) HYPERTENSION 04/17/2018 DAMARIS TSAI MD Ot I70.90 UNSPECIFIED ATHEROSCLEROSIS 04/17/2018 DAMARIS TSAI MD Ot M19.90 UNSPECIFIED OSTEOARTHRITIS, UNSPECIFIED 04/17/2018 DAMARIS TSAI MD Ot M41.86 OTHER FORMS OF SCOLIOSIS, LUMBAR REGION 04/17/2018 DAMARIS TSAI MD Ot M43.16 SPONDYLOLISTHESIS, LUMBAR REGION 04/17/2018 DAMARIS TSAI MD Ot M46.86 OTHER SPECIFIED INFLAMMATORY SPONDYLOPAT 04/17/2018 DAMARIS TSAI MD Ot M47.816 SPONDYLOSIS W/O MYELOPATHY OR RADICULOPA 04/17/2018 DAMARIS TSAI MD Ot M99.73 CONN TISS AND DISC STENOS OF INTVRT FORA 04/17/2018 DAMARIS TSAI MD Ot N29 OTH DISORDERS OF KIDNEY AND URETER IN DI 04/17/2018 DAMARIS TSAI MD Ot Z83.3 FAMILY HISTORY OF DIABETES MELLITUS 04/17/2018 DAMARIS TSAI MD Ot Z87.891 PERSONAL HISTORY OF NICOTINE DEPENDENCE 04/17/2018 DAMARIS TSAI MD Ot Z96.642 PRESENCE OF LEFT ARTIFICIAL HIP JOINT 04/17/2018 PRABHU CHACON MD Ot E83.52 HYPERCALCEMIA 04/17/2018 PRABHU CHACON MD Ot N20.0 CALCULUS OF KIDNEY 04/17/2018 PRABHU CHACON MD Ot N28.1 CYST OF KIDNEY, ACQUIRED 04/17/2018 PRABHU CHACON MD Ot E83.52 HYPERCALCEMIA 04/17/2018 PRABHU CHACON MD Ot M25.862 OTHER SPECIFIED JOINT DISORDERS, LEFT KN 04/17/2018 PRABHU CHACON MD Ot Z96.642 PRESENCE OF LEFT ARTIFICIAL HIP JOINT 04/17/2018 PRABHU CHACON MD Ot M41.85 OTHER FORMS OF SCOLIOSIS, THORACOLUMBAR 04/17/2018 PRABHU CHACON MD Ot M46.86 OTHER SPECIFIED INFLAMMATORY SPONDYLOPAT 04/17/2018 PRABHU CHACON MD Ot M51.16 INTERVERTEBRAL DISC DISORDERS W RADICULO 04/17/2018 PRABHU CHACON MD Ot M99.73 CONN TISS AND DISC STENOS OF INTVRT FORA 05/08/2018 PRABHU CHACON MD Ot N39.0 URINARY TRACT INFECTION, SITE NOT SPECIF 05/08/2018 PRABHU CHACON MD Ot R31.9 HEMATURIA, UNSPECIFIED 05/18/2018 PRABHU CHACON MD Ot N39.0 URINARY TRACT INFECTION, SITE NOT SPECIF 05/18/2018 PRABHU CHACON MD Ot R31.9 HEMATURIA, UNSPECIFIED 05/21/2018 W 724.4 THORACIC OR LUMBOSACRAL NEURITIS OR RADICULITIS, UNSPECIFIED 05/21/2018 W 728.87 MUSCLE WEAKNESS (GENERALIZED) 05/21/2018 W M54.16 RADICULOPATHY, LUMBAR REGION 05/21/2018 W M62.81 MUSCLE WEAKNESS (GENERALIZED) 06/01/2018 MADISON GUAJARDO DO Ot N20.0 CALCULUS OF KIDNEY 06/01/2018 MADISON GUAJARDO DO Ot N28.1 CYST OF KIDNEY, ACQUIRED 06/01/2018 MADISON GUAJARDO DO B Ot Z96.642 PRESENCE OF LEFT ARTIFICIAL HIP JOINT 06/25/2018 MADISON GUAJARDO DO B Ot N20.0 CALCULUS OF KIDNEY 06/25/2018 ABDULKADIR GUAJARDO DOIC B Ot N28.1 CYST OF KIDNEY, ACQUIRED 06/25/2018 MADISON GUAJARDO DO Ot Z96.642 PRESENCE OF LEFT ARTIFICIAL HIP JOINT 06/29/2018 CASANDRA SALAZAR, MADISON B Ot N20.0 CALCULUS OF KIDNEY 06/29/2018 CASANDRA SALAZAR, MADISON B Ot N28.1 CYST OF KIDNEY, ACQUIRED 06/29/2018 CASANDRA SALAZAR, MADISON B Ot Z96.642 PRESENCE OF LEFT ARTIFICIAL HIP JOINT 09/17/2018 Brown, Sriram W 592.0 CALCULUS OF KIDNEY 09/17/2018 Brown, Sriram W N20.0 CALCULUS OF KIDNEY 09/17/2018 Brown, Sriram W 592.0 CALCULUS OF KIDNEY 09/17/2018 Brown, Sriram W 599.0 URINARY TRACT INFECTION, SITE NOT SPECIFIED 09/17/2018 Brown, Sriram W N20.0 CALCULUS OF KIDNEY 09/17/2018 Brown, Sriram W N39.0 URINARY TRACT INFECTION, SITE NOT SPECIFIED 09/17/2018 Brown, Sriram W 592.0 CALCULUS OF KIDNEY 09/17/2018 Brown, Sriram W 599.0 URINARY TRACT INFECTION, SITE NOT SPECIFIED 09/17/2018 Brown, Sriram W N20.0 CALCULUS OF KIDNEY 09/17/2018 Brown, Sriram W N39.0 URINARY TRACT INFECTION, SITE NOT SPECIFIED 09/17/2018 Brown, Sriram W 041.3 KLEBSIELLA PNEUMONIAE INFECTION IN CONDITIONS CLASSIFIED ELSEWHERE AND OF UNSPECIFIED SITE 09/17/2018 Brown, Sriram W 591 HYDRONEPHROSIS 09/17/2018 Brown, Sriram W 599.0 URINARY TRACT INFECTION, SITE NOT SPECIFIED 09/17/2018 Brown, Sriram W B96.1 KLEBSIELLA PNEUMONIAE THE CAUSE OF DISEASES CLASSD ELSWHR 09/17/2018 Brown, Sriram W N13.2 HYDRONEPHROSIS WITH RENAL AND URETERAL CALCULOUS OBSTRUCTION 09/17/2018 Brown, Sriram W N39.0 URINARY TRACT INFECTION, SITE NOT SPECIFIED 09/19/2018 CHRIST BIGGS, CHRISTOFER Kraus Ot N20.2 CALCULUS OF KIDNEY WITH CALCULUS OF URET 09/21/2018 OSWALDO BIGGS, PRABHU Briones Ot V76.12 OTH SCREEN MAMMO-MALIGN NEOPLASM OF JAMI 09/21/2018 OSWALDO BIGGS, PRABHU Briones Ot 788.1 DYSURIA 09/21/2018 OSWALDO BIGGS, PRABHU Briones Ot V76.12 OTH SCREEN MAMMO-MALIGN NEOPLASM OF JAMI 09/21/2018 PRABHU CHACON MD Ot Z12.31 ENCNTR SCREEN MAMMOGRAM FOR MALIGNANT NE 09/21/2018 PRABHU CHACON MD Ot Z12.31 ENCNTR SCREEN MAMMOGRAM FOR MALIGNANT NE 09/21/2018 DAMARIS TSAI MD Ot E83.59 OTHER DISORDERS OF CALCIUM METABOLISM 09/21/2018 DAMARIS TSAI MD Ot I10 ESSENTIAL (PRIMARY) HYPERTENSION 09/21/2018 DAMARIS TSAI MD Ot I70.90 UNSPECIFIED ATHEROSCLEROSIS 09/21/2018 DAMARIS TSAI MD Ot M19.90 UNSPECIFIED OSTEOARTHRITIS, UNSPECIFIED 09/21/2018 DAMARIS TSAI MD Ot M41.86 OTHER FORMS OF SCOLIOSIS, LUMBAR REGION 09/21/2018 DAMARIS TSAI MD Ot M43.16 SPONDYLOLISTHESIS, LUMBAR REGION 09/21/2018 DAMARIS TSAI MD Ot M46.86 OTHER SPECIFIED INFLAMMATORY SPONDYLOPAT 09/21/2018 DAMARIS TSAI MD Ot M47.816 SPONDYLOSIS W/O MYELOPATHY OR RADICULOPA 09/21/2018 DAMARIS TSAI MD Ot M99.73 CONN TISS AND DISC STENOS OF INTVRT FORA 09/21/2018 DAMARIS TSAI MD Ot N29 OTH DISORDERS OF KIDNEY AND URETER IN DI 09/21/2018 DAMARIS TSAI MD Ot Z83.3 FAMILY HISTORY OF DIABETES MELLITUS 09/21/2018 DAMARIS TSAI MD Ot Z87.891 PERSONAL HISTORY OF NICOTINE DEPENDENCE 09/21/2018 DAMARIS TSAI MD Ot Z96.642 PRESENCE OF LEFT ARTIFICIAL HIP JOINT 09/21/2018 PRABHU CHACON MD Ot E83.52 HYPERCALCEMIA 09/21/2018 PRABHU CHACON MD Ot N20.0 CALCULUS OF KIDNEY 09/21/2018 PRABHU CHACON MD Ot N28.1 CYST OF KIDNEY, ACQUIRED 09/21/2018 PRABHU CHACON MD Ot E83.52 HYPERCALCEMIA 09/21/2018 PRABHU CHACON MD Ot M25.862 OTHER SPECIFIED JOINT DISORDERS, LEFT KN 09/21/2018 PRABHU CHACON MD Ot Z96.642 PRESENCE OF LEFT ARTIFICIAL HIP JOINT 09/21/2018 PRABHU CHACON MD Ot M41.85 OTHER FORMS OF SCOLIOSIS, THORACOLUMBAR 09/21/2018 PRABHU CHACON MD Ot M46.86 OTHER SPECIFIED INFLAMMATORY SPONDYLOPAT 09/21/2018 PRABHU CHACON MD Ot M51.16 INTERVERTEBRAL DISC DISORDERS W RADICULO 09/21/2018 PRABHU CHACON MD Ot M99.73 CONN TISS AND DISC STENOS OF INTVRT FORA 09/21/2018 PRABHU CHACON MD Ot N39.0 URINARY TRACT INFECTION, SITE NOT SPECIF 09/21/2018 PRABHU CHACON MD Ot R31.9 HEMATURIA, UNSPECIFIED 09/21/2018 MADISON GUAJARDO DO B Ot N20.0 CALCULUS OF KIDNEY 09/21/2018 MADISON GUAJARDO DO B Ot N28.1 CYST OF KIDNEY, ACQUIRED 09/21/2018 MADISON GUAJARDO DO B Ot Z96.642 PRESENCE OF LEFT ARTIFICIAL HIP JOINT 09/21/2018 CHRISTOFER POLO MD Ot N20.2 CALCULUS OF KIDNEY WITH CALCULUS OF URET 09/24/2018 PRABHU CHACON MD Ot 788.1 DYSURIA 09/24/2018 CHRISTOFER POLO MD Ot Z01.818 ENCOUNTER FOR OTHER PREPROCEDURAL EXAMIN 09/25/2018 CHRISTOFER POLO MD Ot N20.2 CALCULUS OF KIDNEY WITH CALCULUS OF URET 09/25/2018 CHRISTOFER POLO MD Ot N20.1 CALCULUS OF URETER 09/27/2018 CHRISTOFER POLO MD Ot Z01.818 ENCOUNTER FOR OTHER PREPROCEDURAL EXAMIN 09/28/2018 CHRISTOFER POLO MD Ot Z01.818 ENCOUNTER FOR OTHER PREPROCEDURAL EXAMIN 09/28/2018 CHRISTOFER POLO MD, Ot N20.1 CALCULUS OF URETER Procedures There is no data. Results Test Result Range Urinalysis - 05/27/16 07:15 Icotest N/A Negative Urine Volume Urine Volume Sufficient (10mL) Urine Yeast No Yeast present Urine-Appearance Slightly Cloudy Clear Urine-Bacteria 4+ Urine-Bilirubin Negative Negative Urine-Blood 2+ Negative Urine-Color Yellow Colorless-Lt. Yellow Urine-Epithelial Cells 0-5/HPF Urine-Glucose Negative Negative Urine-Ketones Negative Negative Urine-Leukocytes 3+ Negative Urine-Nitrite Negative Negative Urine-Other Culture to follow Urine-pH 5.5 5-8.5 Urine-Protein Trace Negative Urine-RBC Negative Urine-Specific [place] 1.015 1.000-1.030 Urine-WBC TNTC Urobilinogen 0.2 E.U./dL 0.2-1.0 Urine Culture - 05/27/16 07:15 PRELIM CULTURE RESULTS >100,000 Gram Negative NIMISHA / ID to Follow MEDIA PLATED Setup at 08:37 on 05/27/2016 CULTURE SOURCE clean catch urine Sensi - 05/27/16 07:15 FINAL CULTURE RESULTS Klebsiella pneumoniae (Isolate 1) Ampicillin/Sulbactam <=8/4 Ampicillin >16 Amoxicillin/K Clavulanate <=8/4 Ceftriaxone <=8 Ciprofloxacin <=1 Nitrofurantoin >64 Gentamicin <=4 Levofloxacin <=2 Trimethoprim/ Sulfamethoxazole <=2/38 Tetracycline <=4 Amikacin <=16 Aztreonam <=8 Ceftazidime <=1 Ceftazidime/K Clavulanate <=0.25 Cephalothin <=8 Cefotaxime <=2 Cefotaxime/K Clavulanate <=0.5 Cefoxitin <=8 Cefazolin <=8 Cefepime <=8 Cefuroxime <=4 Ertapenem <=1 Imipenem <=4 Meropenem <=4 Piperacillin/Tazobactam <=16 Piperacillin <=16 Tigecycline <=2 Tobramycin <=4 Lipid Panel - 05/16/17 08:58 C/HDL 3.2 3.7-6.7 Cholesterol 224 mg/dL 100-240 HDL 70 mg/dL 30-85 LDL-Calculated 138 mg/dL 0-100 Trig 78 mg/dL 35-160 VLDL 16 mg/dL 0-42 Urinalysis - 08/01/17 12:09 Icotest N/A Negative Urine Volume Urine Volume Sufficient (10mL) Urine Yeast No Yeast present Urine-Appearance Cloudy Clear Urine-Bacteria 4+ Urine-Bilirubin Negative Negative Urine-Blood 2+ Negative Urine-Color Yellow Colorless-Lt. Yellow Urine-Epithelial Cells 0-5/HPF Urine-Glucose Negative Negative Urine-Ketones Negative Negative Urine-Leukocytes 3+ Negative Urine-Nitrite Positive Negative Urine-Other Culture to follow Urine-pH 6.5 5-8.5 Urine-Protein Negative Negative Urine-RBC 0-2/HPF Urine-Specific [place] 1.010 1.000-1.030 Urine-WBC TNTC Urobilinogen 0.2 E.U./dL 0.2-1.0 Urine Culture - 08/01/17 12:09 PRELIM CULTURE RESULTS >100,000 Gram Negative Lactose Instruction[employer] NIMISHA / ID to Follow MEDIA PLATED Setup at 12:15 on 08/01/2017 CULTURE SOURCE void Sensi - 08/01/17 12:09 FINAL CULTURE RESULTS Klebsiella pneumoniae (Isolate 1) Ampicillin/Sulbactam <=8/4 Ampicillin <=8 Amoxicillin/K Clavulanate <=8/4 Ceftriaxone <=8 Ciprofloxacin <=1 Nitrofurantoin >64 Gentamicin <=4 Levofloxacin <=2 Trimethoprim/ Sulfamethoxazole <=2/38 Tetracycline <=4 Amikacin <=16 Aztreonam <=8 Ceftazidime <=1 Ceftazidime/K Clavulanate <=0.25 Cephalothin <=8 Cefotaxime <=2 Cefotaxime/K Clavulanate <=0.5 Cefoxitin <=8 Cefazolin <=8 Cefepime <=8 Cefuroxime <=4 Ertapenem <=1 Imipenem <=4 Meropenem <=4 Piperacillin/Tazobactam <=16 Piperacillin <=16 Tigecycline <=2 Tobramycin <=4 Urinalysis - 09/06/17 08:02 Icotest N/A Negative Urine Volume Urine Volume Sufficient (10mL) Urine Yeast No Yeast present Urine-Appearance Cloudy Clear Urine-Bacteria 2+ Urine-Bilirubin Negative Negative Urine-Blood 2+ Negative Urine-Color Yellow Colorless-Lt. Yellow Urine-Epithelial Cells 0-5/HPF Urine-Glucose Negative Negative Urine-Ketones 2+ Negative Urine-Leukocytes 3+ Negative Urine-Nitrite Positive Negative Urine-Other Culture to follow Urine-pH 6.0 5-8.5 Urine-Protein Negative Negative Urine-RBC 5-10/HPF Urine-Specific [place] 1.010 1.000-1.030 Urine-WBC TNTC Urobilinogen 0.2 E.U./dL 0.2-1.0 Urine Culture - 09/06/17 08:02 PRELIM CULTURE RESULTS >100,000 Gram Negative NIMISHA / ID to Follow MEDIA PLATED Setup at 08:20 on 09/06/2017 CULTURE SOURCE reflex urine culture [id number] catch Sensi - 09/06/17 08:02 FINAL CULTURE RESULTS Klebsiella pneumoniae (Isolate 1) Ampicillin/Sulbactam <=8/4 Ampicillin 16 Amoxicillin/K Clavulanate <=8/4 Ceftriaxone <=8 Ciprofloxacin <=1 Nitrofurantoin >64 Gentamicin <=4 Levofloxacin <=2 Trimethoprim/ Sulfamethoxazole <=2/38 Tetracycline <=4 Amikacin <=16 Aztreonam <=8 Ceftazidime <=1 Ceftazidime/K Clavulanate <=0.25 Cephalothin <=8 Cefotaxime <=2 Cefotaxime/K Clavulanate <=0.5 Cefoxitin <=8 Cefazolin <=8 Cefepime <=8 Cefuroxime <=4 Ertapenem <=1 Imipenem <=4 Meropenem <=4 Piperacillin/Tazobactam <=16 Piperacillin <=16 Tigecycline <=2 Tobramycin <=4 Urinalysis - 12/02/17 17:12 Icotest N/A Negative Urine Volume Urine Volume Sufficient (10mL) Urine-Appearance Cloudy Clear Urine-Bacteria 1+ Urine-Bilirubin Negative Negative Urine-Blood 2+ Negative Urine-Color Yellow Colorless-Lt. Yellow Urine-Glucose Negative Negative Urine-Ketones Negative Negative Urine-Leukocytes 3+ Negative Urine-Nitrite Negative Negative Urine-Other Culture to follow Urine-pH 7.0 5-8.5 Urine-Protein 2+ Negative Urine-RBC Rare/HPF Urine-Specific [place] 1.015 1.000-1.030 Urine-WBC TNTC Urobilinogen 0.2 E.U./dL 0.2-1.0 Urine Culture - 12/02/17 17:12 MEDIA PLATED Setup at 17:20 on 12/02/2017 CULTURE SOURCE [id number]\\ Sensi - 12/02/17 17:12 FINAL CULTURE RESULTS Klebsiella ozaenae (Isolate 1) Ampicillin/Sulbactam <=8/4 Ampicillin 16 Amoxicillin/K Clavulanate <=8/4 Ceftriaxone <=8 Ciprofloxacin <=1 Nitrofurantoin >64 Gentamicin <=4 Levofloxacin <=2 Trimethoprim/ Sulfamethoxazole <=2/38 Tetracycline <=4 Amikacin <=16 Aztreonam <=8 Ceftazidime <=1 Ceftazidime/K Clavulanate <=0.25 Cephalothin <=8 Cefotaxime <=2 Cefotaxime/K Clavulanate <=0.5 Cefoxitin <=8 Cefazolin <=8 Cefepime <=8 Cefuroxime <=4 Ertapenem <=1 Imipenem <=4 Meropenem <=4 Piperacillin/Tazobactam <=16 Piperacillin <=16 Tigecycline <=2 Tobramycin <=4 Urinalysis - 03/28/18 17:40 Icotest N/A Negative Urine Volume Urine Volume Sufficient (10mL) Urine-Appearance Turbid Clear Urine-Bacteria 4+ Urine-Bilirubin Negative Negative Urine-Blood 3+ Negative Urine-Color Lt. Yellow Colorless-Lt. Yellow Urine-Epithelial Cells 0-5/HPF Urine-Glucose Negative Negative Urine-Ketones Negative Negative Urine-Leukocytes 3+ Negative Urine-Nitrite Negative Negative Urine-Other Culture to follow Urine-pH 6.0 5-8.5 Urine-Protein 1+ Negative Urine-RBC 10-20/HPF Urine-Specific [place] <1.005 1.000-1.030 Urine-WBC 20-40/HPF Urobilinogen 0.2 0.2-1.0 Urine Culture - 03/28/18 17:53 PRELIM CULTURE RESULTS >100,000 Gram Negative Lactose Instructional Writer NIMISHA / ID to Follow MEDIA PLATED Setup at 18:00 on 03/28/2018 CULTURE SOURCE voided urine/er collection Sensi - 03/28/18 17:53 FINAL CULTURE RESULTS Klebsiella pneumoniae (Isolate 1) Ampicillin/Sulbactam <=8/4 Ampicillin >16 Amoxicillin/K Clavulanate <=8/4 Ceftriaxone <=8 Ciprofloxacin <=1 Nitrofurantoin >64 Gentamicin <=4 Levofloxacin <=2 Trimethoprim/ Sulfamethoxazole <=2/38 Tetracycline <=4 Amikacin <=16 Aztreonam <=8 Ceftazidime <=1 Ceftazidime/K Clavulanate <=0.25 Cephalothin <=8 Cefotaxime <=2 Cefotaxime/K Clavulanate <=0.5 Cefoxitin <=8 Cefazolin <=8 Cefepime <=8 Cefuroxime <=4 Ertapenem <=1 Imipenem <=4 Meropenem <=4 Piperacillin/Tazobactam <=16 Piperacillin <=16 Tigecycline <=2 Tobramycin <=4 Complete urinalysis with reflex to culture - 04/17/18 10:55 Urine color determination YELLOW NRG Urine clarity determination SLIGHTLY CLOUDY NRG Urine pH measurement by test strip 6.5 5-9 Specific gravity of urine by test strip 1.010 1.016-1.022 Urine protein assay by test strip, semi-quantitative 1+ NEGATIVE Urine glucose detection by automated test strip NEGATIVE NEGATIVE Erythrocytes detection in urine sediment by light microscopy 4+ NEGATIVE Urine ketones detection by automated test strip NEGATIVE NEGATIVE Urine nitrite detection by test strip POSITIVE NEGATIVE Urine total bilirubin detection by test strip NEGATIVE NEGATIVE Urine urobilinogen measurement by automated test strip (mass/volume) NORMAL NORMAL Urine leukocyte esterase detection by dipstick 3+ NEGATIVE Automated urine sediment erythrocyte count by microscopy (number/high power field) [HPF] NRG Automated urine sediment leukocyte count by microscopy (number/high power field) > [HPF] NRG Bacteria detection in urine sediment by light microscopy MODERATE NRG Squamous epithelial cells detection in urine sediment by light microscopy 2-5 NRG Crystals detection in urine sediment by light microscopy NONE NRG Casts detection in urine sediment by light microscopy NONE NRG Mucus detection in urine sediment by light microscopy NEGATIVE NRG Complete urinalysis with reflex to culture YES NRG Bacterial urine culture - 04/17/18 10:55 Bacterial urine culture [id number] NRG COLONY COUNT >100,000/ML NRG FTX;REPORTABLE ID REPORTED 04/18/18 15:05 NR FREE TEXT ENTRY 2 SUSCEPTIBILITY REPORTED [id number] [facility] - 04/17/18 10:55 Gentamicin susceptibility test by minimum inhibitory concentration <= NRG Trimethoprim/sulfamethoxazole susceptibility test by minimum inhibitoryconcentration = NRG Levofloxacin susceptibility test by minimum inhibitory concentration <= NRG Ampicillin susceptibility test by minimum inhibitory concentration R NRG Cefazolin susceptibility test by minimum inhibitory concentration 2 NRG Ceftriaxone susceptibility test by minimum inhibitory concentration <= NRG Ciprofloxacin susceptibility test by minimum inhibitory concentration <= NRG Meropenem susceptibility test by minimum inhibitory concentration <= NRG Nitrofurantoin susceptibility test by minimum inhibitory concentration > NRG Amoxicillin and clavulanate potassium susc NIMISHA <= NRG [id number] - 05/31/18 08:19 Serum or plasma urea nitrogen measurement (mass/volume) 19 mg/dL 7-18 Serum or plasma creatinine measurement (mass/volume) 1.14 mg/dL 0.60-1.30 Serum or plasma urea nitrogen/creatinine mass ratio 17 NRG Serum or plasma creatinine measurement with calculation of estimated glomerular filtration rate 48 NRG Urinalysis - 08/28/18 14:38 Icotest N/A Negative Urine Volume Urine Volume Sufficient (10mL) Urine-Appearance Cloudy Clear Urine-Bacteria 2+ Urine-Bilirubin Negative Negative Urine-Blood 3+ Negative Urine-Color Brown Colorless-Lt. Yellow Urine-Epithelial Cells 0-5/HPF Urine-Glucose Negative Negative Urine-Ketones Negative Negative Urine-Leukocytes 3+ Negative Urine-Nitrite Positive Negative Urine-Other Culture to follow Urine-pH 6.5 5-8.5 Urine-Protein 2+ Negative Urine-RBC 20-40/HPF Urine-Specific [place] 1.015 1.000-1.030 Urine-WBC 10-20/HPF Urobilinogen 0.2 E.U./dL 0.2-1.0 Urine Culture - 08/28/18 14:38 PRELIM CULTURE RESULTS 50,000-100,000 Gram Negative Lactose Instructional Writer NIMISHA / ID to Follow MEDIA PLATED Setup at 15:01 on 08/28/2018 CULTURE SOURCE CC Sensi - 08/28/18 14:38 FINAL CULTURE RESULTS Klebsiella oxytoca (Isolate 1) Ampicillin/Sulbactam <=8/4 Ampicillin >16 Amoxicillin/K Clavulanate <=8/4 Ceftriaxone <=8 Ciprofloxacin <=1 Nitrofurantoin >64 Gentamicin <=4 Levofloxacin <=2 Trimethoprim/ Sulfamethoxazole >2/38 Tetracycline <=4 Amikacin <=16 Aztreonam <=8 Ceftazidime <=1 Ceftazidime/K Clavulanate <=0.25 Cephalothin >16 Cefotaxime <=2 Cefotaxime/K Clavulanate <=0.5 Cefoxitin 16 Cefazolin 16 Cefepime <=8 Cefuroxime 16 Ertapenem <=1 Imipenem <=4 Meropenem <=4 Piperacillin/Tazobactam <=16 Piperacillin <=16 Tigecycline <=2 Tobramycin <=4 Urinalysis - 09/05/18 13:18 Icotest N/A Negative Urine Volume Urine Volume Sufficient (10mL) Urine-Appearance Clear Clear Urine-Bacteria 1+ Urine-Bilirubin Negative Negative Urine-Blood 3+ Negative Urine-Color Yellow Colorless-Lt. Yellow Urine-Epithelial Cells 0-5/HPF Urine-Glucose Negative Negative Urine-Ketones Negative Negative Urine-Leukocytes 2+ Negative Urine-Nitrite Negative Negative Urine-Other Culture Ordered Urine-pH 6.5 5-8.5 Urine-Protein 2+ Negative Urine-RBC 20-40/HPF Urine-Specific [place] 1.020 1.000-1.030 Urine-WBC 10-20/HPF Urobilinogen 0.2 E.U./dL 0.2-1.0 Urine Culture - 09/05/18 13:18 PRELIM CULTURE RESULTS <10,000 Gram Positive Mixed Sary [id number] Skin Contaminant FINAL CULTURE RESULTS <10,000 Gram Positive Mixed Sary Probable Skin Contaminant No Further Workup done MEDIA PLATED Setup at 15:35 on 09/05/2018 CULTURE SOURCE clean Lipase - 09/17/18 04:06 Lipase 63 U/L 7-59 Urine Culture - 09/17/18 04:25 PRELIM CULTURE RESULTS 10,000-20,000 Gram Negative Lactose Instructional Writer NIMISHA / ID to Follow MEDIA PLATED Setup at 04:32 on 09/17/2018X0D0A lood agar was set 09/17 at 1423 CULTURE SOURCE clean catch Sensi - 09/17/18 04:25 FINAL CULTURE RESULTS Klebsiella oxytoca (Isolate 1) Ampicillin/Sulbactam <=8/4 Ampicillin >16 Amoxicillin/K Clavulanate <=8/4 Ceftriaxone <=8 Ciprofloxacin <=1 Nitrofurantoin >64 Gentamicin <=4 Levofloxacin <=2 Trimethoprim/ Sulfamethoxazole >2/38 Tetracycline <=4 Amikacin <=16 Aztreonam <=8 Ceftazidime <=1 Ceftazidime/K Clavulanate <=0.25 Cephalothin >16 Cefotaxime <=2 Cefotaxime/K Clavulanate <=0.5 Cefoxitin 16 Cefazolin 16 Cefepime <=8 Cefuroxime 16 Ertapenem <=1 Imipenem <=4 Meropenem <=4 Piperacillin/Tazobactam <=16 Piperacillin <=16 Tigecycline <=2 Tobramycin <=4 Methicillin resistant Staphylococcus aureus (MRSA) screening culture - 09/25/18 06:18 Methicillin resistant Staphylococcus aureus (MRSA) screening culture NEG NRG Encounters ACCT No. Visit Date/Time Discharge Status Pt. Type Provider Facility Loc./Unit Complaint [id number] 09/17/2018 03:22:00 09/17/2018 07:40:00 DIS Outpatient Nirmal Sriram [facility] [id number] 09/05/2018 13:15:00 09/05/2018 23:59:00 DIS Outpatient PRABHU CHACON [id number] 08/28/2018 13:57:00 08/28/2018 23:59:00 DIS Outpatient Christofer Polo [id number] 03/28/2018 16:50:00 03/28/2018 18:30:00 DIS Outpatient Danielle Johnson [id number] 12/02/2017 17:12:00 12/02/2017 23:59:00 DIS Outpatient Sriram Kinney [id number] 09/06/2017 07:58:00 09/06/2017 23:59:00 DIS Outpatient PRABHU CHACON [id number] 08/01/2017 12:05:00 08/01/2017 23:59:00 DIS Outpatient Christofer Polo [id number] 05/16/2017 08:54:00 05/16/2017 23:59:00 DIS Outpatient PRABHU CHACON [id number] 05/27/2016 07:10:00 05/27/2016 23:59:00 DIS Outpatient PRABHU CHACON [id number] 03/28/2018 19:43:29 Document Registration [id number] 03/06/2018 09:46:00 Document Registration [id number] 09/27/2018 05:36:00 09/27/2018 13:11:00 DIS Outpatient CHRISTOFER POLO MD [facility] PREOP RIGHT ESWL [id number] 09/25/2018 05:59:00 09/25/2018 09:45:00 DIS Outpatient CHRISTOFER POLO MD [facility] SDC RIGHT URETERAL STONE [id number] 09/24/2018 13:01:00 09/24/2018 23:59:59 CLS Outpatient CHRISTOFER POLO MD [facility] RAD URETERAL STONES [id number] 09/24/2018 06:12:00 09/24/2018 16:28:00 DIS Outpatient CHRISTOFER POLO MD [facility] PREOP RIGHT URETERAL STONE [id number] 09/19/2018 13:50:00 09/19/2018 23:59:59 CLS Outpatient CHRISTOFER POLO MD [facility] RAD RT UR STONE,LT RENAL STONE [id number] 05/31/2018 08:04:00 05/31/2018 23:59:59 CLS Outpatient MADISON GUAJARDO DO [facility] RAD LLQ PAIN [id number] 04/17/2018 10:42:00 04/17/2018 23:59:59 CLS Outpatient PRABHU CHACON MD [facility] LAB HENATURIA, RECURRENT UTI [id number] 10/12/2017 08:27:00 10/12/2017 23:59:59 CLS Outpatient PRABHU CHACON MD [facility] RAD LLE RADICULAR PAIN WITH WEIGHT LOSS [id number] 09/22/2017 09:58:00 09/22/2017 23:59:59 CLS Outpatient PRABHU CHACON MD [facility] CARD HYPERCALCEMIA,WEIGHT LOSS,TOTAL HIP REPLACEMENT [id number] 09/20/2017 10:00:00 09/20/2017 23:59:59 CLS Preadmit DAMARIS TSAI MD [facility] CARD DJD,HTN,HISTORY OF TOBACCO USE,DIABETES MELLITUS [id number] 09/15/2017 12:10:00 09/15/2017 23:59:59 CLS Outpatient PRABHU CHACON MD [facility] RAD WEIGHT LOSS,HYPERCALCEMIA [id number] 08/24/2017 11:18:00 08/24/2017 23:59:59 CLS Outpatient DAMARIS TSAI MD [facility] RAD BACK PAIN [id number] 08/24/2017 09:56:00 08/24/2017 23:59:59 CLS Preadmit DAMARIS TSAI MD [facility] CARD DJD,HTN,HISTORY OF TOBACCO USE, DIABETES MELLITUS [id number] 12/29/2016 11:03:00 12/29/2016 23:59:59 CLS Outpatient PRABHU CHACON MD [facility] RAD SCREENING [id number] 11/16/2016 10:15:00 11/16/2016 23:59:59 CLS Preadmit PRABHU CHACON MD [facility] RAD SCREENING [id number] 11/30/2015 10:44:00 11/30/2015 23:59:59 CLS Outpatient PRABHU CHACON MD [facility] RAD SCREENING [id number] 11/20/2014 09:18:00 11/20/2014 23:59:59 CLS Outpatient PRABHU CHACON MD [facility] RAD SCREENING [id number] 08/11/2014 00:09:00 08/11/2014 23:59:59 CLS Preadmit PRABHU CHACON MD [facility] LAB DYSURIA [id number] 05/12/2014 12:50:00 08/10/2014 00:01:00 DIS Outpatient PRABHU CHACON MD [facility] LAB DYSURIA [id number] 06/18/2013 09:05:00 06/18/2013 23:59:59 CLS Outpatient PRABHU CHACON MD [facility] RAD SCREENING [id number] 10/02/2018 09:00:00 PEN Preadmit CHRISTOFER POLO MD [facility] SDC RIGHT URETERAL STONE [id number] 09/28/2011 12:48:00 Document Registration [id number] 05/02/2011 10:21:00 Document Registration [id number] 05/03/2010 14:05:00 Document Registration [id number] 03/12/2010 10:52:00 Document Registration [id number] 12/01/2009 12:05:00 Document Registration [id number] 11/28/2007 11:52:00 Document Registration
--- NOTE | 2018-10-02 10:38 | Anesthesia-General Post-Op ---
General Patient Condition Mental Status/LOC: Same as Preop Cardiovascular: Satisfactory Nausea/Vomiting: Absent Respiratory: Satisfactory Pain: Controlled Complications: Absent Post Op Complications Complications None Follow Up Care/Instructions Patient Instructions None needed. Anesthesia/Patient Condition Patient Condition Patient is doing well, no complaints, stable vital signs, no apparent adverse anesthesia problems. No complications reported per nursing. JU WOOTEN CRNA Oct 02, 2018 10:38
--- NOTE | 2018-10-02 11:40 | Diagnostic Imaging Report ---
INDICATION: Nephrolithiasis. COMPARISON: 10/02/2018 at an earlier time. FINDINGS: There are numerous left renal calculi. The previously seen stone just above the right sacral ala is unchanged. The bowel gas pattern is nonspecific. The lung bases are clear. IMPRESSION: Persistent stone in the right ureter just above the right sacral ala. Numerous left renal calculi. Dictated by: Dictated on workstation # [id number]
--- NOTE | 2018-10-02 14:50 | OPERATIVE REPORT ---
DATE OF SERVICE: 10/02/2018 PREOPERATIVE DIAGNOSIS: Right proximal ureteral stone. POSTOPERATIVE DIAGNOSIS: Right proximal ureteral stone. OPERATION PERFORMED: Right ESWL. SURGEON: Christofer Polo MD ANESTHESIA: General. COMPLICATIONS: None. DESCRIPTION OF PROCEDURE: Under satisfactory general anesthesia, the patient in supine position on the ESWL table we localized the right proximal ureter stone. Shocks were delivered first at kV of 6 and then increased it to 7. A total of 3500 shocks were delivered. The stone looked fragmented. The patient received 40 mg of Lasix at the end of this procedure. She tolerated the procedure and anesthesia well and was sent to recovery room in stable condition. PLAN: We will see the effect of the blasting we made to allow the urine to flow and the pain to be relieved and bring her back in 2 weeks and reblast any residual fragments. This was fully explained to his family and later on to her. Job ID: [id number] DocumentID: [id number] Dictated Date: 10/02/2018 09:09:54 Personal Banker Date: 10/02/2018 14:49:53 Dictated By: CHRISTOFER POLO MD
== END 2018-10-02 11:02 | disposition home or self-care (01) ==
LOC: SDC 06:58
PROVIDERS: ATTEND Urology
DX: N20.1 Calculus of ureter (principal); Z87.891 Personal history of nicotine dependence
CPT/HCPCS: 74018; 87081

== ENCOUNTER → 2018-10-15 | Outpatient (CLI) | payer MEDICARE, MEDICAID ==
[~2018-10-15] MED LIST changes: +TAMS0.4C98 PO
--- NOTE | 2018-10-15 14:27 | Diagnostic Imaging Report ---
INDICATION: Right-sided kidney stones. TIME OF EXAM: 01:32 p.m. Correlation is made with prior study from 10/02/2018. FINDINGS: Multiple left-sided renal calculi are again noted. Calcific density noted just above the right sacral ala is not well seen on today's study. Multiple smaller calcific densities in the pelvis are unchanged and likely phleboliths. There are postop changes to the left hip and left acetabulum. Right convexity scoliotic curvature is again noted. IMPRESSION: Previously noted right ureteric calculus is no longer appreciated and may have passed. Dictated by: Dictated on workstation # [id number]
== END ==
LOC: RAD 13:21
PROVIDERS: ATTEND Urology
DX: N20.0 Calculus of kidney (principal)
CPT/HCPCS: 74018

== ENCOUNTER → 2018-10-19 | Outpatient (CLI) | payer MEDICARE, MEDICAID ==
--- NOTE | 2018-10-19 14:48 | Diagnostic Imaging Report ---
PROCEDURE: US Non-ob pelvis comp/trans. TECHNIQUE: Multiple realtime grayscale images were obtained of the pelvis in various projections endovaginally. Transabdominal imaging was also performed. INDICATION: Family history of endometrial carcinoma. Uterus measures 6.2 x 4.1 x 2.2 cm. Endometrium is thin at 2 mm. No myometrial mass is detected. Ovaries could not be visualized due to bowel gas. No adnexal mass or free fluid is seen. IMPRESSION: Nonvisualized ovaries. The study is otherwise unremarkable. Dictated by: Dictated on workstation # [id number]
== END ==
LOC: RAD 12:46
PROVIDERS: ATTEND Obstetrics & Gynecology
DX: Z80.49 Family history of malignant neoplasm of other genital organs (principal); Z78.0 Asymptomatic menopausal state
CPT/HCPCS: 76830; 76856

== ENCOUNTER 2018-10-31 10:00 | Outpatient (CLI) | payer MEDICARE, MEDICAID ==
[~2018-10-31] VITALS: Ht 162.6 cm; Wt 49.4 kg
== END 2018-10-31 11:04 | disposition home or self-care (01) ==
LOC: PREOP 10:00
PROVIDERS: ATTEND Internal Medicine
DX: Z01.818 Encounter for other preprocedural examination (principal)

== ENCOUNTER 2018-11-02 07:29 | Day surgery (SDC) | payer MEDICARE, MEDICAID ==
--- NOTE | 2018-10-24 05:08 | HISTORY AND PHYSICAL ---
DATE OF SERVICE: COLONOSCOPY HISTORY AND PHYSICAL HISTORY OF PRESENT ILLNESS: The patient is a 63-year-old white female who presented to the office on 10/22/2018 for evaluation of left lumbar radiculopathy and right-sided ureterolithiasis, status post recent lithotripsy. In the course of our conversation I came up that she had never had colonoscopy. She was deemed to be of average risk as she is not aware of any family history for colon cancer. She has had some left lower quadrant abdominal discomfort, but this has not changed. She had been putting on weight after some weight loss that was set back with ureterolithiasis quite symptomatic and then requiring lithotripsy. She reports she is getting her appetite back and she has noted no hematuria. She has some ureterolithiasis on the left side as well, but it has been up in the kidney area. She reports her left lower quadrant pain is different than the right-sided symptoms she had from symptomatic ureterolithiasis. She is likely going to be visiting her daughter who is going to set her up with pain management as I recall in [place]. She is using 3 to 4 hydrocodone at bedtime. She does tell me that through the night she does not take it. She still has symptoms during the day, but she is better able to cope with them as long as she has gotten decent night's sleep. There has not been any evidence for dose escalation and it does reduce left radicular pain. In regard to her left radiculopathy she had been seen by local clinical exercise specialist, Dr. Mann, who did not feel after review of her MRI that she was a surgical candidate. PHYSICAL EXAMINATION: GENERAL: Reveals a white female who did not appear to be in acute distress. VITAL SIGNS: Weight was up 6.4 pounds from 6 weeks ago. Blood pressure 132/66. CHEST: Clear. CARDIOVASCULAR: Regular rate and rhythm without murmur, S3 or S4. MUSCULOSKELETAL: She has a left foot drop and does not know how long this has been going on. There is some subjective numbness of the left foot. Right-sided strength is 5+, dorsiflexion on the left side is 5+ as is knee flexion and extension and hip abduction. ABDOMEN: Soft, supple without mass, organomegaly or tenderness to palpation. EXTREMITIES: Reveal no cyanosis, clubbing or edema, although the patient states by the end of the day she has a little bit of left-sided pedal edema. ASSESSMENT AND PLAN: 1. The patient is set up for screening colonoscopy on 11/02/2018. Prep instructions were given with the Suprep kit and questions answered. 2. 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 Advised the patient to proceed with pain management referral and will continue hydrocodone p.r.n. 3. Ureterolithiasis resolved post-lithotripsy. Discussed the importance of pushing water intake and salt restriction. She reports she has been doing well with the water, but not as good with trying to cut back on salty foods. I will see her back for regular followup at the end of November. Job ID: [id number] DocumentID: [id number] Dictated Date: 10/22/2018 16:54:05 Convalescent Sitter Date: 10/22/2018 17:41:42 Dictated By: PRABHU CHACON MD MTDD
[~2018-11-02] VITALS: Ht 162.6 cm; Wt 49.4 kg
[2018-11-02] VITALS (8 sets, daily range): BP systolic 149–192; BP diastolic 65–122
--- OUTSIDE RECORDS SUMMARY | 2018-11-02 07:34 | XMS REPORT | Continuity of Care Document ---
Author Organization Unknown Address Unknown Phone Unavailable Allergies Active Description Code Type Severity Reaction Onset Reported/Identified Relationship to Patient Clinical Status Yes ASPIRIN MODERATE MODERATE Yes ASPIRIN MODERATE OTHER Yes LEVAQUIN MODERATE MODERATE Yes LEVAQUIN MODERATE OTHER Yes aspirin [id number] Drug Allergy Mild N/A 09/28/2011 Yes levofloxacin [id number] Drug Allergy Mild N/A 09/28/2011 Yes aspirin [id number] Drug Allergy Mild "MADE EARDRUMS 09/24/2018 Yes levofloxacin [id number] Drug Allergy Mild "MADE HER FEEL 09/24/2018 [...] MD Ot I70.90 UNSPECIFIED ATHEROSCLEROSIS 09/06/2017 DAMARIS STAI MD Ot M19.90 UNSPECIFIED OSTEOARTHRITIS, UNSPECIFIED 09/06/2017 [...] BIGGS, PRABHU Briones Ot E83.52 HYPERCALCEMIA 10/09/2017 PRABHU CHACON MD Ot N20.0 CALCULUS OF KIDNEY 10/09/2017 OSWALOD BIGGS, PRABHU Briones Ot N28.1 CYST OF KIDNEY, ACQUIRED 10/13/2017 PRABHU CHACON MD Ot E83.52 HYPERCALCEMIA 10/13/2017 PRABHU CHACON MD Ot N20.0 CALCULUS OF KIDNEY 10/13/2017 PRABHU CHACON MD Ot N28.1 CYST OF KIDNEY, ACQUIRED 10/13/2017 PRABHU CHACON MD Ot E83.52 HYPERCALCEMIA 10/13/2017 PRABHU CHACON MD Ot M25.862 OTHER SPECIFIED JOINT DISORDERS, LEFT KN 10/13/2017 PRABHU CHACON MD Ot Z96.642 PRESENCE OF LEFT ARTIFICIAL HIP JOINT 10/18/2017 PRABHU CHACON MD Ot M41.85 OTHER FORMS OF SCOLIOSIS, THORACOLUMBAR 10/18/2017 PRABHU CHACON MD Ot M46.86 OTHER SPECIFIED INFLAMMATORY SPONDYLOPAT 10/18/2017 PRABHU CHACON MD Ot M51.16 INTERVERTEBRAL DISC [...] MD Ot 788.1 DYSURIA 04/17/2018 PRABHU CHACON MD, Ot V76.12 OTH SCREEN MAMMO-MALIGN NEOPLASM OF JAMI 04/17/2018 PRABHU CHACON MD Ot Z12.31 ENCNTR SCREEN MAMMOGRAM FOR MALIGNANT NE 04/17/2018 PRABHU CHACON MD Ot Z12.31 ENCNTR [...] MD Ot N20.0 CALCULUS OF KIDNEY 04/17/2018 OSWALDO BIGGS, PRABHU Briones Ot N28.1 CYST OF KIDNEY, ACQUIRED 04/17/2018 OSWALDO BIGGS, PRABHU Briones Ot E83.52 HYPERCALCEMIA 04/17/2018 PRABHU CHACON MD [...] MUSCLE WEAKNESS (GENERALIZED) 06/01/2018 MADISON GUAJARDO DO B Ot N20.0 CALCULUS OF KIDNEY 06/01/2018 ABDULKADIR GUAJARDO DOIC B Ot N28.1 CYST OF KIDNEY, ACQUIRED 06/01/2018 MADISON GUAJARDO DO Ot Z96.642 PRESENCE OF LEFT ARTIFICIAL HIP JOINT 06/25/2018 MADISON GUAJARDO DO B Ot N20.0 CALCULUS OF KIDNEY 06/25/2018 MADISON GUAJARDO DO B Ot N28.1 CYST OF KIDNEY, ACQUIRED 06/25/2018 MADISON GUAJARDO DO Ot Z96.642 PRESENCE OF LEFT ARTIFICIAL HIP JOINT 06/29/2018 CASANDRA DO, MADISON B Ot N20.0 CALCULUS OF KIDNEY 06/29/2018 CASANDRA DO, MADISON B Ot N28.1 CYST OF KIDNEY, ACQUIRED 06/29/2018 CASANDRA DO, MADISON B Ot Z96.642 PRESENCE OF LEFT [...] INFECTION, SITE NOT SPECIFIED 09/19/2018 CHRIST BIGGS, ASHLEY Kraus Ot N20.2 CALCULUS OF KIDNEY WITH CALCULUS OF URET 09/21/2018 OSWALDO BIGGS, PRABHU Briones Ot V76.12 OTH SCREEN MAMMO-MALIGN NEOPLASM OF JAMI 09/21/2018 OSWALDO BIGGS, PRABHU Briones Ot 788.1 DYSURIA 09/21/2018 PRABHU CHACON MD Ot V76.12 OTH SCREEN [...] M41.85 OTHER FORMS OF SCOLIOSIS, THORACOLUMBAR 09/21/2018 OSWALDO BIGGS, PRABHU Briones Ot M46.86 OTHER SPECIFIED INFLAMMATORY SPONDYLOPAT 09/21/2018 OSWALDO BIGGS, PRABHU Briones Ot M51.16 INTERVERTEBRAL DISC DISORDERS W RADICULO 09/21/2018 PRABHU CHACON MD Ot M99.73 CONN TISS AND DISC STENOS OF INTVRT FORA 09/21/2018 PRABHU CHACON MD Ot N39.0 URINARY TRACT INFECTION, SITE NOT SPECIF 09/21/2018 PRABHU CHACON MD Ot R31.9 HEMATURIA, UNSPECIFIED 09/21/2018 CASANDRA DO MADISON B Ot N20.0 CALCULUS OF KIDNEY 09/21/2018 CASANDRA DO MADISON B Ot N28.1 CYST OF KIDNEY, ACQUIRED 09/21/2018 CASANDRA SALAZAR MADISON B Ot Z96.642 PRESENCE OF LEFT ARTIFICIAL HIP JOINT 09/21/2018 ASHLEY POLO MD Ot N20.2 CALCULUS OF KIDNEY WITH CALCULUS OF URET 09/24/2018 PRABHU CHACON MD Ot 788.1 DYSURIA 09/24/2018 ASHLEY POLO MD Ot Z01.818 ENCOUNTER FOR OTHER PREPROCEDURAL EXAMIN 09/25/2018 ASHLEY POLO MD Ot N20.2 CALCULUS OF KIDNEY WITH CALCULUS OF URET 09/25/2018 ASHLEY POLO MD Ot N20.1 CALCULUS OF URETER 09/27/2018 ASHLEY POLO MD Ot Z01.818 ENCOUNTER FOR OTHER PREPROCEDURAL EXAMIN 09/28/2018 ASHLEY POLO MD Ot Z01.818 ENCOUNTER FOR OTHER PREPROCEDURAL EXAMIN 09/28/2018 ASHLEY POLO MD Ot N20.1 CALCULUS OF URETER 10/02/2018 ASHLEY POLO MD Ot N20.1 CALCULUS OF URETER 10/02/2018 ASHLEY POLO MD Ot Z87.891 PERSONAL HISTORY OF NICOTINE DEPENDENCE 10/09/2018 ASHLEY POLO MD Ot N20.1 CALCULUS OF URETER 10/09/2018 ASHLEY POLO MD Ot Z87.891 PERSONAL HISTORY OF NICOTINE DEPENDENCE 10/10/2018 ASHLEY POLO MD Ot N20.2 CALCULUS OF KIDNEY WITH CALCULUS OF URET 10/11/2018 CHRIST BIGGS, ASHLEY Kraus Ot N20.1 CALCULUS OF URETER 10/11/2018 CHRIST BIGGS, ASHLEY Kraus Ot Z87.891 PERSONAL HISTORY OF NICOTINE DEPENDENCE 10/22/2018 CHRIST BIGGS, ASHLEY Kraus Ot N20.1 CALCULUS OF URETER 10/26/2018 ASHLEY POLO MD Ot N20.1 CALCULUS OF URETER 10/30/2018 OSWALDO BIGGS, PRABHU Briones Ot Z01.818 ENCOUNTER FOR OTHER PREPROCEDURAL EXAMIN Procedures There is no data. Results Test [...] 5-8.5 Urine-Protein Trace Negative Urine-RBC Negative Urine-Specific [place] 1.015 1.000-1.030 Urine-WBC TNTC Urobilinogen 0.2 E.U./dL [...] 5-8.5 Urine-Protein Negative Negative Urine-RBC 0-2/HPF Urine-Specific [place] 1.010 1.000-1.030 Urine-WBC TNTC Urobilinogen 0.2 E.U./dL 0.2-1.0 Urine Culture - 08/01/17 12:09 PRELIM CULTURE RESULTS >100,000 Gram Negative Lactose [employer] NIMISHA / ID to Follow MEDIA PLATED [...] 5-8.5 Urine-Protein Negative Negative Urine-RBC 5-10/HPF Urine-Specific [place] 1.010 1.000-1.030 Urine-WBC TNTC Urobilinogen 0.2 E.U./dL 0.2-1.0 Urine Culture - 09/06/17 08:02 PRELIM CULTURE RESULTS >100,000 Gram Negative NIMISHA / ID to Follow MEDIA PLATED Setup at 08:20 on 09/06/2017 CULTURE SOURCE reflex urine culture [id number] Sensi - 09/06/17 08:02 FINAL CULTURE [...] 5-8.5 Urine-Protein 2+ Negative Urine-RBC Rare/HPF Urine-Specific [place] 1.015 1.000-1.030 Urine-WBC TNTC Urobilinogen 0.2 E.U./dL 0.2-1.0 Urine Culture - 12/02/17 17:12 MEDIA PLATED Setup at 17:20 on 12/02/2017 CULTURE SOURCE [id number]\\ Sensi - 12/02/17 17:12 FINAL CULTURE RESULTS [...] 5-8.5 Urine-Protein 1+ Negative Urine-RBC 10-20/HPF Urine-Specific [place] <1.005 1.000-1.030 Urine-WBC 20-40/HPF Urobilinogen 0.2 0.2-1.0 Urine Culture - 03/28/18 17:53 PRELIM CULTURE RESULTS >100,000 Gram Negative Lactose [employer] NIMISHA / ID to Follow MEDIA PLATED [...] culture - 04/17/18 10:55 Bacterial urine culture [id number] NRG COLONY COUNT >100,000/ML NRG FTX;REPORTABLE ID REPORTED 04/18/18 15:05 NRG FREE TEXT ENTRY 2 SUSCEPTIBILITY REPORTED [id number] NR RML Sensitivity Panel - 04/17/18 10:55 Gentamicin susceptibility [...] and clavulanate potassium susc NIMISHA <= NRG [id number] - 05/31/18 08:19 Serum or plasma urea [...] 5-8.5 Urine-Protein 2+ Negative Urine-RBC 20-40/HPF Urine-Specific [place] 1.015 1.000-1.030 Urine-WBC 10-20/HPF Urobilinogen 0.2 E.U./dL 0.2-1.0 Urine Culture - 08/28/18 14:38 PRELIM CULTURE RESULTS 50,000-100,000 Gram Negative Lactose [employer]er NIMISHA / ID to Follow MEDIA PLATED [...] 5-8.5 Urine-Protein 2+ Negative Urine-RBC 20-40/HPF Urine-Specific [place] 1.020 1.000-1.030 Urine-WBC 10-20/HPF Urobilinogen 0.2 E.U./dL 0.2-1.0 Urine Culture - 09/05/18 13:18 PRELIM CULTURE RESULTS <10,000 Gram Positive Mixed Sary [id number] Skin Contaminant FINAL CULTURE RESULTS <10,000 Gram Positive Mixed Sary Probable Skin Contaminant No Further Workup done MEDIA PLATED Setup at 15:35 on 09/05/2018 CULTURE SOURCE clean Lipase - 09/17/18 04:06 Lipase 63 U/L 7-59 Urine Culture - 09/17/18 04:25 PRELIM CULTURE RESULTS 10,000-20,000 Gram Negative Lactose [employer]er NIMISHA / ID to Follow MEDIA PLATED [...] Staphylococcus aureus (MRSA) screening culture NEG NRG Methicillin resistant Staphylococcus aureus (MRSA) screening culture - 10/02/18 07:00 Methicillin resistant Staphylococcus aureus (MRSA) screening culture NEG NRG Encounters ACCT No. Visit Date/Time Discharge Status Pt. Type Provider Facility Loc./Unit Complaint [id number] 09/17/2018 03:22:00 09/17/2018 07:40:00 DIS Outpatient Sriram Kinney [facility] [id number] 09/05/2018 13:15:00 09/05/2018 23:59:00 DIS Outpatient PRABHU CHACON [id number] 08/28/2018 13:57:00 08/28/2018 23:59:00 DIS Outpatient Ashley Polo [id number] 03/28/2018 16:50:00 03/28/2018 18:30:00 DIS Outpatient Danielle Johnson [id number] 12/02/2017 17:12:00 12/02/2017 23:59:00 DIS Outpatient Sriram Kinney [id number] 09/06/2017 07:58:00 09/06/2017 23:59:00 DIS Outpatient PRABHU CHACON [id number] 08/01/2017 12:05:00 08/01/2017 23:59:00 DIS Outpatient Ashley Polo [id number] 05/16/2017 08:54:00 05/16/2017 23:59:00 DIS Outpatient OSWALDO PRABHU [id number] 05/27/2016 07:10:00 05/27/2016 23:59:00 DIS Outpatient PRABHU CHACON [id number] 03/28/2018 19:43:29 Document Registration [id number] 03/06/2018 09:46:00 Document Registration [id number] 10/31/2018 10:00:00 10/31/2018 11:04:00 DIS Outpatient PRABHU CHACON MD [facility] PREOP COLONOSCOPY [id number] 10/19/2018 12:46:00 10/19/2018 23:59:59 CLS Outpatient AZIZA CAMPBELL DO [facility] RAD FAMILY HX OF MALIGNANT NEOPLASM OF ENDOMETRIUM [id number] 10/15/2018 13:21:00 10/15/2018 23:59:59 CLS Outpatient ASHLEY POLO MD [facility] RAD FOLLOW UP ON KIDNEY STONES [id number] 10/02/2018 06:58:00 10/02/2018 11:02:00 DIS Outpatient ASHLEY POLO MD [facility] RIGHT URETERAL STONE [id number] 09/27/2018 05:36:00 09/27/2018 13:11:00 DIS Outpatient ASHLEY POLO MD [facility] PREOP RIGHT ESWL [id number] 09/25/2018 05:59:00 09/25/2018 09:45:00 DIS Outpatient ASHLEY POLO MD [facility] RIGHT URETERAL STONE [id number] 09/24/2018 13:01:00 09/24/2018 23:59:59 CLS Outpatient ASHLEY POLO MD [facility] RAD URETERAL STONES [id number] 09/24/2018 06:12:00 09/24/2018 16:28:00 DIS Outpatient ASHLEY POLO MD [facility] PREOP RIGHT URETERAL STONE [id number] 09/19/2018 13:50:00 09/19/2018 23:59:59 CLS Outpatient ASHLEY POLO MD [facility] RAD RT UR STONE,LT RENAL STONE [id number] 05/31/2018 08:04:00 05/31/2018 23:59:59 CLS Outpatient CASANDRA SALAZAR MADISON Royce [facility] RAD LLQ PAIN [id number] 04/17/2018 10:42:00 04/17/2018 23:59:59 CLS Outpatient PRABHU CHACON MD [facility] LAB HENATURIA, RECURRENT UTI [id number] 10/12/2017 08:27:00 10/12/2017 23:59:59 CLS Outpatient PRABHU CHACON MD [facility] RAD LLE RADICULAR PAIN WITH WEIGHT LOSS [id number] 09/22/2017 09:58:00 09/22/2017 23:59:59 CLS Outpatient PRABHU CHACON MD [facility] CARD HYPERCALCEMIA,WEIGHT LOSS,TOTAL HIP REPLACEMENT [id number] 09/20/2017 10:00:00 09/20/2017 23:59:59 CLS Preadmit DAMARIS TSAI MD [facility] CARD DJD,HTN,HISTORY OF TOBACCO USE,DIABETES MELLITUS [id number] 09/15/2017 12:10:00 09/15/2017 23:59:59 CLS Outpatient PRABHU CHACON MD [facility] RAD WEIGHT LOSS,HYPERCALCEMIA [id number] 08/24/2017 11:18:00 08/24/2017 23:59:59 CLS Outpatient DAMARIS TSAI MD [facility] RAD BACK PAIN [id number] 08/24/2017 09:56:00 08/24/2017 23:59:59 CLS Preadmit DAMARIS TSAI MD [facility] CARD DJD,HTN,HISTORY OF TOBACCO USE, DIABETES MELLITUS [id number] 12/29/2016 11:03:00 12/29/2016 23:59:59 CLS Outpatient PRABHU CHACON MD [facility] RAD SCREENING [id number] 11/16/2016 10:15:00 11/16/2016 23:59:59 CLS Preadmit PRABHU CHACON MD [facility] RAD SCREENING [id number] 11/30/2015 10:44:00 11/30/2015 23:59:59 CLS Outpatient PRABHU CHACON MD [facility] RAD SCREENING [id number] 11/20/2014 09:18:00 11/20/2014 23:59:59 CLS Outpatient PRABHU CHACON MD [facility] RAD SCREENING [id number] 08/11/2014 00:09:00 08/11/2014 23:59:59 CLS Preadmit PRABHU CHACON MD [facility] LAB DYSURIA [id number] 05/12/2014 12:50:00 08/10/2014 00:01:00 DIS Outpatient PRABHU CHACON MD [facility] LAB DYSURIA [id number] 06/18/2013 09:05:00 06/18/2013 23:59:59 CLS Outpatient PRABHU CHACON MD [facility] RAD SCREENING [id number] 11/02/2018 10:00:00 PEN Preadmit PRABHU CHACON MD [facility] ENDO SCREENING [id number] 09/28/2011 12:48:00 Document Registration [id number] 05/02/2011 10:21:00 Document Registration [id number] 05/03/2010 14:05:00 Document Registration [id number] 03/12/2010 10:52:00 Document Registration [id number] 12/01/2009 12:05:00 Document Registration [id number] 11/28/2007 11:52:00 Document Registration
[2018-11-02] MEDS ORDERED: LACTATED RINGERS 1,000 ML IV ONE (07:37)
[2018-11-02] MEDS ORDERED: LACTATED RINGERS 1,000 ML IV STA (07:40)
[2018-11-02] MEDS ORDERED: LIDOCAINE JELLY 2% 6 ML SYRINGE MM PRN (07:45)
--- NOTE | 2018-11-02 08:03 | Pre-Op Note & Conscious Sedat ---
Pre-Operative Progress Note H&P Reviewed The H&P was reviewed, patient examined and no changes noted. Date H&P Reviewed: Nov 02, 2018 Time H&P Reviewed: 08:03 Conscious Sedation Pre-Proced ASA Score 2 For ASA 3 and 4: Consider anesthesia and medical clearance. Also, for patients with a history of failed moderate sedation consider anesthesia. Airway Lungs Heart ASA score ASA 1: a normal healthy patient ASA 2: a patient with a mild systemic disease (mid diabetes, controlled hypertension, obesity ASA 3: a patient with a severe systemic disease that limits activity (angina, COPD, prior Myocardial infarction) ASA 4: a patient with an incapacitating disease that is a constant threat to life (CHF, renal failure) ASA 5: a moribund patient not expected to survive 24 hrs. (ruptured aneurysm) ASA 6: a declared brain- patient whose organs are being harvested. For emergent operations, add the letter E after the classification Mallampati Classification Grade 1 Sedation Plan Analgesia, Amnesia, Plan communicated to team members, Discussed options with patient/fam, Discussed risks with patient/fam The patient is an appropriate candidate to undergo the planned procedure, sedation, and anesthesia. The patient immediately re-assessed prior to indication. PRABHU CHACON MD Nov 02, 2018 08:03
[2018-11-02] MEDS ORDERED: PROPOFOL INJECTION 50 ML IV ONE (09:29)
[2018-11-02] MEDS ORDERED: MIDAZOLAM 2 MG/2 ML (VERSED) VIAL ONE (09:30)
[2018-11-02] MEDS ORDERED: LIDOCAINE JELLY 2% 6 ML SYRINGE ONE (09:31)
--- NOTE | 2018-11-02 11:02 | Anesthesia-General Post-Op ---
MAC Patient Condition Mental Status/LOC: Same as Preop Cardiovascular: Satisfactory Nausea/Vomiting: Absent Respiratory: Satisfactory Pain: Controlled Complications: Absent Post Op Complications Complications None Follow Up Care/Instructions Patient Instructions None needed. Anesthesiology Discharge Order Discharge Order Patient is doing well, no complaints, stable vital signs, no apparent adverse anesthesia problems. No complications reported per nursing. NELSON KING CRNA Nov 02, 2018 11:02
--- NOTE | 2018-11-02 17:36 | OPERATIVE REPORT ---
DATE OF SERVICE: 11/02/2018 SCREENING COLONOSCOPY primary care physician. INDICATION FOR PROCEDURE: Screening colonoscopy. The patient was placed in left lateral decubitus position. Prior to undergoing colonoscopy, digital rectal evaluation was performed. Anal sphincter tone was normal and the perianal reflexes intact. Digital evaluation was compatible with a small anterior rectocele. No other abnormalities are noted. The colonoscope was then inserted into the rectum and under direct visualization advanced to cecum. The cecum was identified by identification of ileocecal valve and cecal strap. Photographic documentation was obtained. Careful inspection was made as the colonoscope was withdrawn. The procedure was done under Diprivan anesthesia. FINDINGS: There was no evidence for internal or external hemorrhoids. The rectum was unremarkable. One or 2 small sigmoid diverticulum were noted without evidence for diverticulitis. No other sigmoid colonic abnormalities were appreciated. The descending colon, transverse colon, ascending colon and cecum were unremarkable. ASSESSMENT: Several diminutive distal hyperplastic appearing rectal polyps were noted. Considering age and medical comorbidities they were left as risk of removal was greater than any potential benefit. Several small sigmoid diverticulum were present. This was otherwise normal colonoscopy to the cecum. Job ID: [id number] DocumentID: [id number] Dictated Date: 11/02/2018 10:35:04 Electrical Laboratory Technician Date: 11/02/2018 17:36:10 Dictated By: PRABHU CHACON MD
== END 2018-11-02 11:15 | disposition home or self-care (01) ==
LOC: ENDO 07:29
PROVIDERS: ATTEND Internal Medicine
DX: Z12.11 Encounter for screening for malignant neoplasm of colon (principal); K57.30 Diverticulosis of large intestine without perforation or abscess without bleeding; K62.1 Rectal polyp; Z88.1 Allergy status to other antibiotic agents; Z88.6 Allergy status to analgesic agent; Z96.642 Presence of left artificial hip joint

== ENCOUNTER → 2019-03-12 | Outpatient (CLI) | payer MEDICARE, MEDICAID | LOC: CARD 12:59 | PROVIDERS: ATTEND Internal Medicine | DX: I34.0 Nonrheumatic mitral (valve) insufficiency (principal); I51.7 Cardiomegaly | CPT/HCPCS: 93306 ==

== ENCOUNTER → 2021-07-19 | Outpatient (CLI) | payer MEDICARE, MEDICAID ==
[~2021-07-19] MED LIST changes: -TAMS0.4C98 PO; +TMSL.4C PO
--- NOTE | 2021-07-19 11:38 | Diagnostic Imaging Report ---
INDICATION: Routine screening. COMPARISON: 12/29/2016 and 11/30/2015. TECHNIQUE: 2D and 3D bilateral screening mammography was performed with CAD. FINDINGS: Both breasts are heterogeneously dense, limiting the sensitivity of mammography. The parenchymal pattern is stable. No mass or malignant-appearing microcalcifications are seen. The axillae are unremarkable. IMPRESSION: No mammographic features suspicious for malignancy are identified. ACR BI-RADS Category 1: Negative. Result letter will be mailed to the patient. Note: At least 10% of breast cancer is not imaged by mammography. Dictated by: Dictated on workstation # [id number]
== END ==
LOC: RAD 10:00
PROVIDERS: ATTEND Internal Medicine
DX: Z12.31 Encounter for screening mammogram for malignant neoplasm of breast (principal)
CPT/HCPCS: 77063; 77067